=== PATIENT | female | born 1955 | race Caucasian/White ===

== ENCOUNTER 2021-12-07 16:26 | Outpatient (CLI) | payer MEDICARE, SELFPAY ==
[2021-12-07 22:48] LABS: Clue Cells No Clue Cells Seen (None Seen); Trichomonas No Trichomonas Seen (None Seen); Yeast No Yeast Seen (None Seen)
== END 2021-12-07 16:27 | disposition home or self-care (01) ==
LOC: KYNREF 16:26
PROVIDERS: Visit Provider Nurse Practitioner Family
DX: L29.2 Pruritus vulvae (principal)
CPT/HCPCS: 87210

== ENCOUNTER 2023-11-28 12:00 | Outpatient (CLI) | payer MEDICARE, OTHER, SELFPAY ==
--- OUTSIDE RECORDS SUMMARY | 2023-11-28 12:04 | XMS_ITS | Encounter Summary ---
Author Organization [place] Address [address] [place] [address]. [place] [address] Care Team Providers Care Bonus Clerk Name Role Phone Tiny Christiansen MD Unavailable [phone] Gem Lugo DO Primary Care Provider [phone] Encounter Details Date Type Department Care Team (Late st Contact Info) Description 04/21/2009 9:25 AM [facility] in [facility] [address] [place] [phone] Desmond Humphreys MD [address] [place] [address] Social History Tobacco Use Types Packs/Day Years Used Date Smoking Tobacco: Never Alcohol Use Standard Drinks/Week Comments No 0 (1 standard drink = 0.6 oz pur e alcohol) Sex and Gender Information Value Date Recorded Sex Assigned at Not on file Gender Identity Not on file Sexual Orientation Not on file documented as of this encounter Plan of Treatment Not on file documented as of this encounter Visit Diagnoses Not on filedocumented in this encounter Care Teams Bonus Clerk Relationship Specialty Start Date End Date Tiny Christiansen [place] [address] PCP - Obstetrics/Gynecology 03/05/00 1 02/14/14 [place] [address] PCP - General Family Practice 03/30/09 01/18/13 documented as of this encounter
--- OUTSIDE RECORDS SUMMARY | 2023-11-28 12:04 | XMS_ITS | Encounter Summary ---
Author Organization [place] Address [facility] [place] [address] Care Team Providers Care Lean Process Deployment Consultant Name Role Phone Tiny Christiansen MD Unavailable [phone] Gem Lugo DO Primary Care Provider [phone] Delroy Garay MD Unavailable [phone] Encounter Details Date Type Department Care Team (Late st Contact Info) Description 05/18/2009 8:21 AM [facility] in [facility] [address] [place] [phone] Gem Lugo DO [facility] [address] [address] Social History Tobacco Use Types Packs/Day Years [...] on filedocumented in this encounter Care Teams Lean Process Deployment Consultant Relationship Specialty Start Date End Date Tiny Christiansen [place] [address] PCP - Obstetrics/Gynecology 03/05/00 1 02/14/14 [place] [address] PCP - General Family Practice 03/30/09 01/18/13 Delroy [place] [address] PCP - ENT Otolaryngology 05/06/09 01/20/18 documented as of this encounter
--- OUTSIDE RECORDS SUMMARY | 2023-11-28 12:04 | XMS_ITS | Encounter Summary ---
Author Organization [place] Address [address] [place] [address]. [place] [address] Care Team Providers Care Felled Seam Operator Name Role Phone Tiny Christiansen MD Unavailable [phone] Gem Lugo DO Primary Care Provider [phone] Delroy Garay MD Unavailable [phone] Tracee Jacinto NP Primary Care Provider [phone] Reason for Visit * Reason Onset Date Comments MyChart Communication 05/09/2009 Encounter Details Date Type Department Care Team (Late st Contact Info) Description 05/09/2009 MyC Medical Advice [facility] in [facility] [address] [place] [address] Gem Lugo DO [facility] [address] [facility] [address] [place], [place] [id number] MyChart Communication Social History Tobacco Use Types Packs/Day Years [...] on filedocumented in this encounter Care Teams Felled Seam Operator Relationship Specialty Start Date End Date Tiny Christiansen [place] [address] PCP - Obstetrics/Gynecology 03/05/00 1 02/14/14 [place] [address] PCP - General Family Practice 03/30/09 01/18/13 Delroy Garay [place] [address] PCP - ENT Otolaryngology 05/06/09 01/20/18 Tracee Jacinto [place] [address] PCP - General 04/02/16 documented as of this encounter
--- OUTSIDE RECORDS SUMMARY | 2023-11-28 12:04 | XMS_ITS | Encounter Summary ---
Author Organization [place] Address [address] [place] [address]. [place] [address] Care Team Providers Care Flowers Salesperson Name Role Phone Tiny Christiansen MD Unavailable [phone] Gem Lugo DO Primary Care Provider [phone] Delroy Garay MD Unavailable [phone] Tracee Jacinto NP Primary Care Provider [phone] Encounter Details Date Type Department Care Team (Late st Contact Info) Description 05/04/2009 MyC Medical Advice [facility] in [facility] [address] [place] [phone] [facility] [address] [facility] [address] [place] [address] Social History Tobacco Use Types Packs/Day Years [...] on filedocumented in this encounter Care Teams Flowers Salesperson Relationship Specialty Start Date End Date Tiny Christiansen MD [place] [address] PCP - Obstetrics/Gynecology 03/05/00 1 02/14/14 [place] [address] PCP - General Family Practice 03/30/09 01/18/13 Delroy Garay MD [place] [address] PCP - ENT Otolaryngology 05/06/09 01/20/18 Tracee Jacinto [place] [address] PCP - General 04/02/16 documented as of this encounter
--- OUTSIDE RECORDS SUMMARY | 2023-11-28 12:04 | XMS_ITS | Encounter Summary ---
Author Organization [place] Address [facility] [place] [address] Care Team Providers Care Carrier Operator Name Role Phone Tiny Christiansen MD Unavailable [phone] Gem Lugo DO Primary Care Provider [phone] Encounter Details Date Type Department Care Team (Late st Contact Info) Description 05/03/2009 2:43 PM CDT [facility] in [facility] [address] [place] [phone] Gem Lugo DO [facility] [address] [facility] 300 [place] [address] Social History Tobacco Use Types Packs/Day Years [...] on filedocumented in this encounter Care Teams Carrier Operator Relationship Specialty Start Date End Date Tiny Christiansen MD [place] [address] PCP - Obstetrics/Gynecology 03/05/00 1 02/14/14 [place] [address] PCP - General Family Practice 03/30/09 01/18/13 documented as of this encounter
--- OUTSIDE RECORDS SUMMARY | 2023-11-28 12:04 | XMS_ITS | Encounter Summary ---
Author Organization [place] Address [facility] [place] [address] Care Team Providers Care Commercial Airline Pilot Name Role Phone Tiny Christiansen MD Unavailable [phone] Gem Lugo DO Primary Care Provider [phone] Delroy Garay MD Unavailable [phone] Tracee Jacinto NP Primary Care Provider [phone] Reason for Referral * - Closed Specialty Diagnoses / Procedures Referred By Contac t Referred To Contact Diagnoses Multinodular goiter Gem Lugo DO [facility] [address] [address] Referral ID Status Reason Start Date Expiration Date Visits Re quested Visits Authorized [id number] Closed 05/27/2009 02/10/2011 1 1 Comments Multinodular goiter and dysphagia. Encounter Details Date Type Department Care Team (Late st Contact Info) Description 05/20/2009 MyC Medical Advice [facility] in [facility] [address] [place] [phone] Gem Lugo DO [facility] [address] [phone] Multinodular Goiter (Primary Dx) Social History Tobacco Use Types Packs/Day Years [...] documented as of this encounter Visit Diagnoses Diagnosis Multinodular goiter- Primary Nontoxic multinodular goiter documented in this encounter Care Teams Commercial Airline Pilot Relationship Specialty Start Date End Date Tiny Christiansen [place] [address] PCP - Obstetrics/Gynecology 03/05/00 1 02/14/14 [place] [address] PCP - General Family Practice 03/30/09 01/18/13 Delroy Garay [place] [address] PCP - ENT Otolaryngology 05/06/09 01/20/18 Tracee Jacinto [place] [address] PCP - General 04/02/16 documented as of this encounter
--- OUTSIDE RECORDS SUMMARY | 2023-11-28 12:04 | XMS_ITS | Encounter Summary ---
Author Organization [place] Address [address] [place] [address]. [place] [address] Care Team Providers Care Pegger Name Role Phone Tiny Christiansen MD Unavailable [phone] Gem Lugo DO Primary Care Provider [phone] Delroy Garay MD Unavailable [phone] Tracee Jacinto NP Primary Care Provider [phone] Encounter Details Date Type Department Care Team (Late st Contact Info) Description 05/10/[address] [facility] in [facility] [address] [place] [phone] Gem Lugo DO [facility] [address] [facility] 300 [place] [address] Social History Tobacco Use Types Packs/Day Years [...] on filedocumented in this encounter Care Teams Pegger Relationship Specialty Start Date End Date Tiny Christiansen MD [place] [address] PCP - Obstetrics/Gynecology 03/05/00 1 02/14/14 [place] [address] PCP - General Family Practice 03/30/09 01/18/13 Delroy Garay MD [place] [address] PCP - ENT Otolaryngology 05/06/09 01/20/18 Tracee Jacinto [place] [address] PCP - General 04/02/16 documented as of this encounter
--- OUTSIDE RECORDS SUMMARY | 2023-11-28 12:04 | XMS_ITS | Encounter Summary ---
Author Organization [facility] Address [address] [place] [address] Care Team Providers Care Medicare Nurse Name Role Phone Jeri Debi Bunny Primary Care Provider [phone] Reason for Visit * Reason Onset Date Comments Xray symptoms 02/08/2021 Encounter Details Date Type Department Care Team (Late st Contact Info) Description 02/08/2021 Telephone [place] [address] [place] [address] Alexy Rod MD [address] [facility] 20 [place] [address] Xray symptoms Social History Tobacco Use Types Packs/Day Years Used Date Smoking Tobacco: Never Smokeless Tobacco: Never Alcohol Use Standard Drinks/Week Comments Not Currently 0 (1 standard drink = 0.6 oz pur e alcohol) Overall Financial Resource Strain (CARDIA) Answe r Date Recorded Difficulty of Paying Living Expenses Not hard at all 09/17/2018 PHQ-2 Answer Date Recorded PHQ-9 Total Score 0 01/30/2021 [facility] - Occupational Stress Questionnaire Answer Date Recorded Feeling of Stress Not at all 09/17/2018 Exercise Vital Sign Answer Date Recorde d Days of Exercise per Week 0 days 2018 Minutes of Exercise per Session 0 min 09/17/2018 Hunger Vital Sign Answer Date Recorded Worried About Running Out of Food in the Last Ye ar Never true 09/17/2018 Ran Out of Food in the Last Year Never true 09/17/2018 PRAPARE - Transportation Answer Date Re corded Lack of Transportation (Medical) No 09/17/2018 Lack of Transportation (Non-Medical) No 09/17/2018 Education Answer Date Recorded What is the highest level of school you have completed or the highest degree you have received? High school graduate 09/13/2018 Sex and Gender Information Value Date Recorded Sex Assigned at Not on file Gender Identity Not on file Sexual Orientation Not on file documented as of this encounter Plan of Treatment Not on file documented as of this encounter Visit Diagnoses Not on filedocumented in this encounter Additional Health Concerns Infection Onset Date Last Indicated Resolved Time COVID-19 Confirmed 01/30/2021 01/30/2021 2 8:17 PM CDT documented as of this encounter Care Teams Medicare Nurse Relationship Specialty Start Date End Date Debi Wilcox [address] [place] [address] PCP - General Internal Medicine 11/20/22 documented as of this encounter
--- OUTSIDE RECORDS SUMMARY | 2023-11-28 12:04 | XMS_ITS | Encounter Summary ---
Author Organization [place] Address [address] [place] [address]. [place] [address] Care Team Providers Care Program Host Name Role Phone luis mTee Primary Care Provider Unavaila ble Tiny Christiansen MD Unavailable [phone] Gem Lugo DO Primary Care Provider [phone] Delroy Garay MD Unavailable [phone] Tracee Jacinto NP Primary Care Provider [phone] Encounter Details Date Type Department Care Team (Late st Contact Info) Description 03/20/2009 MyC Medical Advice [facility] in [place] [employer]IXER OPERATOR [employer] [address] [place] [address] Shayna Cruz MD [facility] [address] [place], [place] [phone] Social History Tobacco Use Types Packs/Day Years [...] on filedocumented in this encounter Care Teams Program Host Relationship Specialty Start Date End Date Tee Sanders PCP - General 03/05/07 03/29/09 Tiny Christiansen MD [place] [address] PCP - Obstetrics/Gynecology 03/05/00 1 02/14/14 Gem Lug[place] [address] PCP - General Family Practice 03/30/09 01/18/13 Delroy Garay MD [place] [address] PCP - ENT Otolaryngology 05/06/09 01/20/18 Tracee Jacinto NP [place] [address] PCP - General 04/02/16 documented as of this encounter
--- OUTSIDE RECORDS SUMMARY | 2023-11-28 12:04 | XMS_ITS | Referral Summary ---
Author Organization [place] Address [address] [place] [address]. [place] [address] Care Team Providers Care Pile Operator Name Role Phone Tracee Jacinto NP Primary Care Provider Allergies Active Allergy Reactions Criticality Noted Date Comments Levofloxacin Hemihydrate 10/03/2001 Levaquin Penicillins 10/03/2001 Sulfa Antibiotics 10/03/2001 Medications Medication Sig Dispensed Refills Start Date End Date Status PREDNISONE 20 MG OR TABS 2 daily x 5 days, 1 daily x 5 days, 1/2 daily x 5 days 18 Tab 0 05/02/2009 Active WILMA 60 MG OR CAPS 1 tablet twice daily 60 Units 0 09/20/2009 Active NEXIUM 40 MG PO CPDR 1 CAPSULE DAILY 30 Cap 0 09/20/2009 Active Fluticasone Propionate (FLONASE INHA 50 MCG/DOSE NA) 2 sprays by Each Nare route daily. 1 Bottle 0 12/09/2009 Active Immunizations Name Administration Dates Next Due TD,PF 7+ (Tenivac) 03/30/2001 Social History Tobacco Use Types Packs/Day Years Used Date Smoking Tobacco: Never Alcohol Use Standard Drinks/Week Comments No 0 (1 standard drink = 0.6 oz pur e alcohol) Adolescent Education Answer Date Record ed Getting School Help Needed Not on file 11/17 Sex and Gender Information Value Date Recorded Sex Assigned at Not on file Gender Identity Not on file Sexual Orientation Not on file Last Filed Vital Signs Vital Sign Reading Time Taken Comments Blood Pressure 138/84 05/09/2009 3:29 PM CDT Pulse 68 05/09/2009 3:29 PM CDT Temperature 36.4 ??C (97.6 ??F) 05/09/2009 3:29 PM CD T Respiratory Rate - - Oxygen Saturation - - Inhaled Oxygen Concentration - - Weight 113.8 kg (250 lb 14.4 oz) 05/09/2009 3:29 PM CDT Height 165.1 cm (5' 5) 03/16/2009 3:39 PM MANAGER GAME Body Mass Index 41.75 03/16/2009 3:39 PM MANAGER GAME Plan of Treatment Not on file Care Teams Pile Operator Relationship Specialty Start Date End Date Tracee Jacinto NP PCP - General 04/02/16
--- OUTSIDE RECORDS SUMMARY | 2023-11-28 12:04 | XMS_ITS | Encounter Summary ---
Author Organization [place] Address [address] [place] [address]. [place] [address] Care Team Providers Care Microchip Specialist Name Role Phone luis mTee Primary Care Provider Tiny Ford MD Unavailable [phone] Encounter Details Date Type Department Care Team (Late st Contact Info) Description 03/18/2009 8:18 AM [facility] in [facility] [address] [place] [address] Shayna Cruz MD [facility] [address] [place] [address] Social History Tobacco Use Types Packs/Day Years [...] on filedocumented in this encounter Care Teams Microchip Specialist Relationship Specialty Start Date End Date Tee Sanders PCP - General 03/05/07 03/29/09 Tiny Christiansen [place] [address] PCP - Obstetrics/Gynecology 03/05/00 1 02/14/14 documented as of this encounter
--- OUTSIDE RECORDS SUMMARY | 2023-11-28 12:04 | XMS_ITS | Clinical Summary ---
Author Organization [place] Address [address] [place] [address]. [place] [address] Care Team Providers Care Security Officer Name Role Phone Tracee Jacinto NP Primary [...] Dates Next Due TD,PF 7+ (Tenivac) 03/30/2001 Family History Medical History Relation Comments Lipids Father Cancer Maternal Grandmother ovarian can cer Hypertension Mother Cancer Paternal Grandfather stomach Cancer Paternal Grandmother ovarian[place] cancer Diabetes Other family hx Eye Disorder Other Anesthesia Reaction No family hx of Blood Disease No family hx of Relation Status Comments Father Maternal Grandmother Mother Paternal Grandfather Paternal Grandmother Other Social History Tobacco Use Types Packs/Day Years [...] 165.1 cm (5' 5) 03/16/2009 3:39 PM EDUCATION FACULTY MEMBER Body Mass Index 41.75 03/16/2009 3:39 PM EDUCATION FACULTY MEMBER Plan of Treatment Not on file Care Teams Security Officer Relationship Specialty Start Date End Date Tracee Jacinto NP PCP - General 04/02/16
--- OUTSIDE RECORDS SUMMARY | 2023-11-28 12:04 | XMS_ITS | Clinical Summary ---
Author Organization [facility] er Address [address] [place] [address] Care Team Providers Care Social Media Developer Name Role Phone Jeri Debi Hollis Primary Care Provider [phone] Allergies Active Allergy Reactions Criticality Noted Date Comments Adhesive Tape Rash Low 12/04/2013 Cefaclor Hives,Rash High 08/13/2018 Chocolate Anaphylaxis High 08/13/2018 Ciprofloxacin Hives,Rash High 08/13/2018 [place] Anaphylaxis High 08/13/2018 Egg-Derived Products Nausea And Vomiting,Other (see comments),Headache High 08/13/2018 Esophageal burning Cephalexin Hives Medium 05/11/2019 Levofloxacin Anaphylaxis,Hives,Sh ortness of breath High 10/03/2001 Levaquin Other reaction(s): Urticaria/Hives Other Hives,Rash High 09/13/2018 ALLERGIES TO MULTIPLE ANTIBIOTICS Penicillins Hives Medium 10/03/2001 Other reaction(s): Urticaria/Hives Sulfa Antibiotics Hives,Rash High 10/03/2001 Sulfamethoxazole-Trime thoprim High 06/05/2022 Other Reaction(s): GI intolerance Medications Medication Sig Dispensed Refills Start Date End Date Status latanoprost (XALATAN) 0.005 % ophthalmic solution Administer 1 drop into both eyes every other day Glaucoma 05/24/2018 Active aspirin 325 MG tablet Take 1 tablet (325 mg total) by mouth 1 (one) time each day Fibral myalgia Active esomeprazole (NEXIUM) [address] capsuleIndications:G astroesophageal reflux disease without esophagitis Take one a day for GERD. Do not open capsule. 90 capsule 3 10/17/2018 Active Cobalamin Combinations (B-12) 100-[address] under the tongue Active Ergocalciferol (VITAMIN D2 PO) Place under the tongue Active fluticasone (FLONASE) 50 MCG/ACT nasal sprayIndications:All ergic rhinitis due to other allergic trigger, unspecified seasonality INHALE ONE PUFF INTO EACH NOSTRIL EVERY DAY 16 g 11 01/04/2020 Active metoprolol succinate XL (TOPROL-XL) 25 MG 24 hr tablet Take 0.5 tablets (12.5 mg total) by mouth daily 09/26/2021 Active hydrOXYzine (ATARAX) 25 MG tablet Take 1 tablet (25 mg total) by mouth daily Active estradiol (ESTRACE) 0.1 MG/GM vaginal cream Insert 2 g into the vagina 3 (three) times a week 08/02/2021 Active Cholecalciferol 10 MCG/ML liquid 400 Units Active atorvastatin (LIPITOR) 40 MG tablet Take 1 tablet (40 mg total) by mouth daily 08/17/2021 Active clobetasol (TEMOVATE) 0.05 % cream 12/07/2021 Active azelastine (ASTELIN) 0.1 % nasal spray Administer 1 spray into affected nostril(s) 2 times daily 04/04/2023 Active azithromycin (ZITHROMAX) 250 MG tablet 05/20/2023 Active ezetimibe (ZETIA) 10 MG tablet Take 1 tablet (10 mg total) by mouth 5 (five) times a week at 0900. 01/15/2023 Active Active Problems Problem Noted Date Diagnosed Date Cardiomyopathy 12/15/2021 Frequent PVCs 12/15/2021 Left atrial enlargement 12/15/2021 LVH (left ventricular hypertrophy) 12/15/2021 Primary osteoarthritis of both knees 12/15/2021 Other specified glaucoma 12/15/2021 Atrophic vaginitis 07/21/2021 Overview: Estrogen cream Atarax - off label use - per patient as told by [facility]. Encounter for screening for malignant neoplasm o f colon 07/21/2021 Overview: Added automatically from request for surgery [id number] condition 07/21/2021 Overview: Severe fatigue, works 4 hrs/dy and hits wall. Solitary pulmonary nodule 07/21/2021 Overview: Likely due to Covid infection/pneumonia Jan CT with decreased size of nodules. Plan tor repeat in July 2022 History of pneumonia 01/30/2021 Overview: 3 in lifetime, 3rd and worse one due to Covid in Jan 2021, hospitalized 4 days Drug allergy 08/10/2019 Vaginal polyp 04/23/2019 Fever 10/14/2018 Benign endometrial hyperplasia 10/09/2018 Monoclonal gammopathy 02/18/2018 Chronic sinusitis 03/25/2017 Irritable bowel syndrome without diarrhea 2014 Hyperlipidemia 11/20/2013 Vitamin D deficiency 11/20/2013 Allergic rhinitis 07/13/2013 Overview: date of onset unknown Fibromyalgia 06/24/2013 Overview: unknown date of dx History of colonic polyps 04/11/2012 Nontoxic multinodular goiter 04/11/2012 Arthropathy 06/27/2011 Gastroesophageal reflux disease with esophagitis 06/27/2011 Immunizations Name Administration Dates Next Due TD Preservative Free 08/08/2017,03/30/2001 Td 03/30/2001 Td, Unspecified 03/30/2001 Tdap 11/16/2013 Family History Medical History Relation Comments Hyperlipidemia Brother Hyperlipidemia Father Asthma Maternal Grandmother Ovarian cancer Maternal Grandmother Stomach cancer Paternal Grandfather Asthma Sister 1 Familial Adenomatous Polyposis Sister 2 Hyperlipidemia Sister 2 Breast cancer Neg Hx Relation Status Comments Brother Alive Father Maternal Grandmother Paternal Grandfather Sister 1 Alive Sister 2 Alive Social History Tobacco Use Types Packs/Day Years Used Date Smoking Tobacco: Never Smokeless Tobacco: Never Tobacco Cessation:Counseling Given: No Alcohol Use Standard Drinks/Week Comments Not Currently 0 (1 standard drink = 0.6 oz pur e alcohol) Overall Financial Resource Strain (CARDIA) Answe r Date Recorded Difficulty of Paying Living Expenses Not hard at all 09/17/2018 PHQ-2 Answer Date Recorded PHQ-9 Total Score 0 12/15/2021 [facility] [place] [place] [facility] - Occupational Stress [...] Sign Reading Time Taken Comments Blood Pressure 136/80 07/12/2023 10:04 AM CDT Pulse 62 07/11/2023 10:06 AM CDT Temperature 36.6 ??C (97.9 ??F) 12/15/2021 8:08 AM CD T Respiratory Rate 16 12/15/2021 8:08 AM CDT Oxygen Saturation 96% 12/15/2021 8:08 AM CDT Inhaled Oxygen Concentration - - Weight 101 kg (222 lb) 12/15/2021 8:08 AM CDT Height 162.6 cm (5' 4) 12/15/2021 8:08 AM CDT Body Mass Index 38.11 12/15/2021 8:08 AM CDT Plan of Treatment Health Maintenance Due Date Last Done Comments CT Colonography 1956 FIT-DNA 1956 Sigmoidoscopy 1955 iFOBT 1956 Fall Risk Performed 1974 Zoster Vaccines (1 of 2) 2006 Pneumococcal Vaccine: 65+ Years (1 of 1 - PCV) 2021 Mammogram 08/28/2023 08/27/2022, 08/11, 07/05/2021, Additional history exists COVID-19 Vaccine (1 - 4- season) 2023 Influenza Vaccine (#1) 2023 DTaP,Tdap,and Td Vaccines (3 - Td or Tdap) 08/09/2027 08/08/2017, 08/08/2017, 11/16/2013, Additional history exists Bone Density Scan 09/06/2027 09/05/2022, , 12/11/2016 Colonoscopy 01/30/2032 01/29/2022, 04/12, 02/12/2012 Colorectal Cancer Screening 01/30/2032 Pap Smear Discontinued 09/02/2018, 08/12, 02/10/2015 HPV Vaccines Aged Out No longer eligi ble based on patient's age to complete this topic Procedures Procedure Name Priority Date/Time Associated Diagnosis Comments PAP TEST Routine 02/10/2015 9:34 AM HEAD CHARGER from Last 3 Months or Most Recently Relevant to Health Maintenance Results * Pap Smear (02/10/2015 9:34 AM HEAD CHARGER) Sure[facility] Pap Test SEE BELOW [facility] Comment: ? [facility] ? [address] ?[place] [address] ? Patient: ?GABRIELA AMBROSIO ? Procedure: ? 02/10/2015 09:34 /Age/Sex: ??1955, 59 Y, F ? Received: ?02/10/2015 14:29 ?Accession #: ?? [id number] Billing: ?[id number] ?Patient Location: [facility] [place] [place] ?OFFICE Ordered by: ?? POLLO JACINTO, PRESSED OR BLOWN GLASS WORKER, COUPON CLERK ? Attending: ? POLLO JACINTO, ? PRESSED OR BLOWN GLASS WORKER, COUPON CLERK ? [facility] CYTOLOGY FINAL REPORT SPECIMEN: (A) SURE PATH PAP SCREEN WITH HPV REFLEX SPECIMEN DESCRIPTION: Endocervical Received cloudy specimen in SurePath vial. CLINICAL INFORMATION: LMP: ??/??/2011 ?? Menopause: Y ?? Prev.normal: 2011 ??SPECIMEN ADEQUACY: Satisfactory for Evaluation. ??No endocervical cells/transformation zone component present. GENERAL CATEGORIZATION: Negative for Intraepithelial Lesion or Malignancy INTERPRETATION/RESULTS: Comment: ??An inadequate endocervical/transformational zone component is not necessarily an indication for immediately repeating the pap. ??Correlation with the history and clinical exam are required. PAP Test Disclaimer Cervical cytology is a screening test primarily for squamous cancer and its precursors and has associated false-negative and false-positive results. Regular sampling and follow-up of unexplained clinical signs and symptoms are recommended to minimize the impact of false negative and false positive results. Screened By: Signed By: VERA GARCIA (ASCP) <Sign Out Dr. Mcclelland> Reported: ??02/17/2015 ? Page 1 of 1 Sure Path PAP screen with HPV reflex 02/10/2015 9:34 AM HEAD CHARGER 02/10/2015 2:29 PM HEAD CHARGER Pollo Jacinto PRESSED OR BLOWN GLASS WORKER, COUPON CLERK LAB CYTOLOG Y ORDERABLES [facility] [address] [place] [address] from Last 3 Months or Most Recently Relevant to Health Maintenance Care Teams Social Media Developer Relationship Specialty Start Date End Date Debi Wilcox [address] [place] [phone] PCP - General Internal Medicine 11/20/22
--- OUTSIDE RECORDS SUMMARY | 2023-11-28 12:05 | XMS_ITS | Encounter Summary ---
Author Organization [facility] Address [address] [place] [address]. [place] [address] Care Team Providers Care Direct Marketing Representative Name Role Phone luis mTee Primary Care Provider Unavaila ble Tiny Christiansen MD Unavailable [phone] Gem Lugo DO Primary Care Provider [phone] Delroy Garay MD Unavailable [phone] Tracee Jacinto NP Primary Care Provider [phone] Encounter Details Date Type Department Care Team (Late st Contact Info) Description 03/18/2009 MyC Medical Advice [facility] in [place] MEDICATION RECONCILIATION TECHNICIAN [address] [place] [address] Shayna Cruz MD [facility] [address] [place], [place] [id number] Social History Tobacco Use Types Packs/Day Years [...] on filedocumented in this encounter Care Teams Direct Marketing Representative Relationship Specialty Start Date End Date Tee Sanders PCP - General 03/05/07 03/29/09 Tiny [place] [address] PCP - Obstetrics/Gynecology 03/05/00 1 02/14/14 [place] [address] PCP - General Family Practice 03/30/09 01/18/13 [place] [address] PCP - ENT Otolaryngology 05/06/09 01/20/18 [place] [address] PCP - General 04/02/16 documented as of this encounter
--- OUTSIDE RECORDS SUMMARY | 2023-11-28 12:05 | XMS_ITS | Encounter Summary ---
Author Organization [facility] Address [address] [place] [address] Care Team Providers Care Ambulette Driver Name Role Phone Debi Wilcox M.D. Primary Care Provider [phone] Reason for Referral * Cardiovascular-Diagnostic (Routine) - Closed Specialty Diagnoses / Procedures Referred By Contac t Referred To Contact Diagnoses Beat Premature Ventricular Fatigue Pain Chest Cardiomyopathy Dilated (HCC) Procedures Echo Transthoracic (TTE) Eduardo Barclay M.D. [address] [place] [phone] Phone: tel: fax: [facility] Region Referral ID Status Reason Start Date Expiration Date Visits Re quested Visits Authorized [id number] Closed 07/05/2023 07/04/2024 1 1 Reason for Visit * Cardiovascular-Diagnostic (Routine) - Closed Specialty Diagnoses / Procedures Referred By Contac t Referred To Contact Diagnoses Beat Premature Ventricular Fatigue Pain Chest Cardiomyopathy Dilated (HCC) Procedures Echo Transthoracic (TTE) Eduardo Barclay M.D. [address] [place] [phone] Phone: tel: fax: [facility] Region Referral ID Status Reason Start Date Expiration Date Visits Re quested Visits Authorized [id number] Closed 07/05/2023 07/04/2024 1 1 Encounter Details Date Type Department Care Team (Latest Contact Info) Description 11/05/2023 7:13 AM CDT - 11/05/2023 11:59 PM CDT Hospital Encounter Department of Cardiovascular Diseases in [place], [place] [address] [place] [phone] Eduardo Barclay M.D. [address] [place] [address] Beat Premature Ventricular; Fatigue; Pain Chest; Cardiomyopathy Dilated (HCC) Discharge Disposition: Home or Self Care Social History Tobacco Use Types Packs/Day Years Used Date Smoking Tobacco: Never Passive Smoke Exposure: Never Smokeless Tobacco: Never Alcohol Use Standard Drinks/Week Comments No 0 (1 standard drink = 0.6 oz pur e alcohol) [facility] Utilities Answer Date Recorded In the past 12 months has [employer] electric, gas, oil, or water company threatened to shut off services in your home? No 04/04/2023 Humiliation, Afraid, Rape, and Kick questionnair e Answer Date Recorded Fear of Current or Ex-Partner No Emotionally Abused No 11/06/2018 Physically Abused No 11/06/2018 Sexually Abused No 11/06/2018 Social Connection and Isolat ion Panel [NHANES] Answer Date Recorded Frequency of Communication w ith Friends and Family More than three times a week 11/06/2018 Frequency of Social Gatherin gs with Friends and Family Twice a week 11/06/2018 Attends Anabaptism Services More than 4 times per year 11/06/2018 Active Member of Clubs or Organizations Yes 11/06/2018 Attends Club or Organization Meetings More than 4 times per year 11/06/2018 Marital Status 11/06/2018 AUDIT-C Answer Date Recorded Frequency of Alcohol Consumption Never 11/06/2018 Average Number of Drinks Not on file 019 Frequency of Binge Drinking Never 10/13 Overall Financial Resource Strain (CARDIA) Answe r Date Recorded Difficulty of Paying Living Expenses Somewhat long rd 11/06/2018 PHQ-2 Answer Date Recorded PHQ-2 Score 0 03/29/2023 [facility] [place] [facility] - Occupational Stress Questionnaire Answer Date Recorded Feeling of Stress Only a little 11/06/2018 Exercise Vital Sign Answer Date Recorde d On average, how many days pe r week do you engage in moderate to strenuous exercise (like a brisk walk)? 2 days Minutes of Exercise per Session Not on file 04/04/2023 Hunger Vital Sign Answer Date Recorded Within the past 12 months, y ou worried that your food would run out before you got the money to buy more. Never true 04/04/19 24 Within the past 12 months, t he food you bought just didn't last and you didn't have money to get more. Never true 04/04/2023 PRAPARE - Transportation Answer Date Re corded In the past 12 months, has l ack of transportation kept you from medical appointments or from getting medications? No 03/15 In the past 12 months, has l ack of transportation kept you from meetings, work, or from getting things needed for daily living? No 04/04/2023 Nutrition Answer Date Recorded On average, how many serving s of fruits and vegetables do you eat per day (serving size is equal to 1 cup or approximately the size of a tennis ball)? 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 I have a [facility] place to live 04/04/2023 Education Answer Date Recorded What is the highest level of school you have completed or the highest degree you have received? 12th grade 11/06/2018 Comments No Sex and Gender Information Value Date Recorded Sex Assigned at Female 02/14/2018 7:06 AM HEAVY CLEANER Legal Sex Female 6:32 AM HEAVY CLEANER Gender Identity Female 02/14/2018 7:06 AM HEAVY CLEANER Sexual Orientation Straight 02/14/2018 7: 06 AM HEAVY CLEANER documented as of this encounter Medications at Time of Discharge acetaminophen (TYLENOL EXTRA STRENGTH) 500 mg tablet Take 2 tablets (1,000 mg total) by mouth every 6 (six) hours as needed for pain. 10/09/2018 aspirin 325 mg tablet Take 325 mg by mouth. atorvastatin (LIPITOR) 40 mg tablet Take 1 tablet (40 mg total) by mouth 2 (two) times a week. Twice a week 8 tablet 11 01/14/2023 azelastine (ASTELIN) 137 mcg/spray (0.1 %) nasal spray Administer 1 spray into each nostril 2 (two) times a day. Use in each nostril as directed 30 mL 12 04/04/2023 cholecalciferol, vitamin D3, 25 mcg (1,000 Unit) tablet Take 1 tablet (1,000 Units total) by mouth daily. (start after done with the 50,000 unit weekly capsules) 90 tablet 11 09/12/2023 clobetasoL (TEMOVATE) 0.05 % cream as needed. 12/07/2021 cyanocobalamin, vitamin B-12, 5,000 mcg/mL drops Place under the tongue. 1 drop/a couple times a week esomeprazole (NexIUM) [address] capsule Take 1 capsule by mouth 2 (two) times a day before breakfast and dinner. 04/30/2014 ezetimibe (ZETIA) 10 mg tablet Take 1 tablet (10 mg total) by mouth 5 (five) times a week. When not taking the atorvastatin 20 tablet 11 01/15/2023 hydrOXYzine (ATARAX) 25 mg tablet Take 25 mg by mouth at bedtime. metoprolol succinate (TOPROL-XL) 25 mg 24 hr tablet Take 0.5 tablets (12.5 mg total) by mouth daily. Do not crush or chew. 45 tablet 3 07/05/2023 documented as of this encounter Plan of Treatment Upcoming Encounters Date Type Department Care Team (Late st Contact Info) Description 12/13/2023 7:20 AM CDT Appointment Department of Laboratory Medicine in [address] [phone] Debi Wilcox M.D. [address] [place] [phone] 03/09/2024 10:50 AM HEAVY CLEANER Appointment Department of Laboratory Medicine in [address] [phone] Debi Wilcox M.D. [address] [place] [address] 03/09/2024 11:00 AM HEAVY CLEANER Appointment Department of Radiology in [place] [address] [place] [phone] Debi Wilcox M.D. [address] [place] [phone] 03/09/2024 1:00 PM HEAVY CLEANER Office Visit Department of Internal Medicine in [place] [address] [place] [phone] Debi Wilcox M.D. [address] [place] [phone] documented as of this encounter Procedures Procedure Name Priority Date/Time Associated Diagnosis Comments (TTE) 2D ECHO DOPPLER COLOR Routine 11/05/2023 8:09 AM CDT Beat Premature Ventricular Fatigue Pain Chest Cardiomyopathy Dilated (HCC) documented in this encounter Results * (TTE) 2D ECHO DOPPLER COLOR (11/05/2023 8:09 AM CDT) Ejection Fraction 57 MC CV EIMS Sinus of Valsalva 36 MC CV EIMS Mid-Ascending Aorta 39 MC CV EIMS LV Mass Index 94 MC CV EIMS LV End-Diastolic Diameter 51 MC CV EIMS LV End-Systolic Diameter 35 MC CV EIMS LV End-Diastolic Volume 150 MC CV EIMS LV End-Systolic Volume 65 MC CV EIMS MV E Velocity 0.7 MC CV EIMS MV A Velocity 0.9 MC CV EIMS MV E/A 0.78 MC CV EIMS MV e' Velocity Medial 0.05 MC CV EIMS MV e' Velocity Lateral 0.09 MC CV EIMS MV E/e' Medial 14 MC CV EIMS MV E/e' Lateral 7.8 MC CV EIMS Left ventricular stroke volume index 50 MC CV EIMS Cardiac Output 5.38 MC CV EIMS Cardiac Index 2.53 MC CV EIMS LV Interventricular Septal Wall Thickness 10 MC CV EIMS LV Posterior Wall Thickness 11 MC CV EIMS LV Relative Wall Thickness 43 MC CV EIMS Tricuspid Annular S? 0.16 MC CV EIMS TR Vmax 2.62 MC CV EIMS RA Pressure 5 MC CV EIMS RV Systolic Pressure 32 MC CV EIMS Estimated diastolic pulmonary artery pressure 9 MC CV EIMS AV mean gradient 3 MC CV EIMS Aortic valve area 3.52 MC CV EIMS Aortic Valve Dimensionless Index 0.72 MC CV EIMS LA Volume Index 47 MC CV EIMS Aortic Valve Systolic Peak Velocity 1.3 MC CV EIMS Anatomical Region Laterality Modality Echocardiography 11/05/2023 7:17 AM CDT Impressions 11/05/2023 9:19 AM CDT Transthoracic outreach echo interpretation. LEFT VENTRICLE:Mildly enlarged left ventricular chamber size. Abnormal left ventricular geometry with ??concentric remodeling (increased wall thickness to cavity ratio). Calculated 2-D biplane volumetric left ventricular ejection fraction of 57%. No regional wall motion abnormalities. Indeterminate left ventricular diastolic function. RIGHT VENTRICLE:Normal right ventricular chamber size. Mildly reduced right ventricular systolic function. Estimated right ventricular systolic pressure 32 mmHg (right atrial pressure of 5 mmHg). ATRIA:Moderately enlarged left atrial size. Left atrial volume index 47 ml/m2. Enlarged right atrial size by visual estimate. CARDIAC VALVES:Trileaflet aortic valve. Normal aortic valve. No aortic valve regurgitation. Normal mitral valve. Trivial mitral valve regurgitation. Normal pulmonary valve. Normal pulmonary valve systolic velocities. Trivial pulmonary valve regurgitation. Normal tricuspid valve. Trivial tricuspid valve regurgitation. OTHER ECHO FINDINGS:Inferior vena cava not well visualized. Normal sinus of Valsalva diameter of 36 mm. Normal mid ascending aorta diameter of 39 mm. Abdominal aorta not visualized. Imaging inadequate for detection of atrial level shunt. No intracardiac mass or thrombus, but the left atrial appendage cannot be visualized adequately with transthoracic echo to exclude thrombus in this location. No ??pericardial effusion. For the complete report, see the Order-Level Documents. Narrative 11/05/2023 9:19 AM CDT For the complete report, see the Order-Level Documents. Hemodynamics Heart Rate: 51 BPM Blood Pressure: 148 / 90 mmHg ECG: Sinus rhythm Final Impressions 1. Mildly enlarged left ventricular chamber size, no regional wall motion abnormalities, calculated 2-D biplane volumetric ejection fraction of 57%. 2. Normal right ventricular chamber size, mildly reduced systolic function, estimated right ventricular systolic pressure 32 mmHg (right atrial pressure of 5 mmHg). 3. No hemodynamically significant valvular heart disease. 4. Inferior vena cava not well visualized. 5. No ??pericardial effusion. 6. Compared to the report of 03/15/2022 the following changes have occurred: Improvement in left ventricular size and ejection fraction (previously, LVEF was 40-45% in the setting of frequent PVCs). The PVCs are no longer evident.. ??Side by side comparison of images performed. Procedure Note Rios Vargas M.D., Ph.D. - 11/05/2023 For the complete report, see the Order-Level Documents. Hemodynamics Heart Rate: 51 BPM Blood Pressure: 148 / 90 mmHg ECG: Sinus rhythm Final Impressions 1. Mildly enlarged left ventricular chamber size, no regional wall motionabnormalities, calculated 2-D biplane volumetric ejection fraction of57%. 2. Normal right ventricular chamber size, mildly reduced systolicfunction, estimated right ventricular systolic pressure 32 mmHg (rightatrial pressure of 5 mmHg). 3. No hemodynamically significant valvular heart disease. 4. Inferior vena cava not well visualized. 5. No pericardial effusion. 6. Compared to the report of 03/15/2022 the following changes haveoccurred: Improvement in left ventricular size and ejection fraction(previously, LVEF was 40-45% in the setting of frequent PVCs). The PVCsare no longer evident.. Side by side comparison of images performed. Findings Transthoracic outreach echo interpretation. LEFT VENTRICLE:Mildly enlarged left ventricular chamber size. Abnormalleft ventricular geometry with concentric remodeling (increased wallthickness to cavity ratio). Calculated 2-D biplane volumetric leftventricular ejection fraction of 57%. No regional wall motionabnormalities. Indeterminate left ventricular diastolic function. RIGHT VENTRICLE:Normal right ventricular chamber size. Mildly reducedright ventricular systolic function. Estimated right ventricular systolicpressure 32 mmHg (right atrial pressure of 5 mmHg). ATRIA:Moderately enlarged left atrial size. Left atrial volume index 47ml/m2. Enlarged right atrial size by visual estimate. CARDIAC VALVES:Trileaflet aortic valve. Normal aortic valve. No aorticvalve regurgitation. Normal mitral valve. Trivial mitral valveregurgitation. Normal pulmonary valve. Normal pulmonary valve systolicvelocities. Trivial pulmonary valve regurgitation. Normal tricuspid valve.Trivial tricuspid valve regurgitation. OTHER ECHO FINDINGS:Inferior vena cava not well visualized. Normal sinusof Valsalva diameter of 36 mm. Normal mid ascending aorta diameter of 39mm. Abdominal aorta not visualized. Imaging inadequate for detection ofatrial level shunt. No intracardiac mass or thrombus, but the left atrialappendage cannot be visualized adequately with transthoracic echo toexclude thrombus in this location. No pericardial effusion. For the complete report, see the Order-Level Documents. us Eduardo Barclay M.D. CV ECHO PROCEDURES Final R esult documented in this encounter Visit Diagnoses Diagnosis Beat Premature Ventricular Fatigue Pain Chest Cardiomyopathy Dilated (HCC) documented in this encounter Additional Health Concerns Assessment Noted Time PHQ-9 Depression Total Score: 4 11/13/19 19 7:39 AM CDT documented as of this encounter Care Teams Ambulette Driver Relationship Specialty Start Date End Date Debi Wilcox M.D. [address] [place] [phone] PCP - General Internal Medicine 10/01/18 documented as of this encounter
--- OUTSIDE RECORDS SUMMARY | 2023-11-28 12:05 | XMS_ITS | Clinical Summary ---
Author Organization [facility] Address [address] [place] [id number] Care Team Providers Care Bit Shaver Name Role Phone Debi Wilcox M.D. Primary Care Provider [phone] Source Comments Patient records contain information from all sites at [facility]. For routine questions regarding patient records, call [phone] during business hours, M-F 8:00 AM - 5:00 PM Central Time. Record requests for emergency care only can be directed to [phone] at any time.[facility] Allergies Active Allergy Reactions Criticality Noted Date Comments Adhesive Tape-Silicones Rash 12/04/2013 Amoxicillin Other (see comments) 01/10/2021 Cefaclor Shortness of breath (Reselect Reaction),Rash,Hives (Reselect Reaction) High 04/30/2014 Cephalexin Other (see comments) 01/10/2021 Ciprofloxacin Anaphylaxis,Hives (Reselect Reaction),Shortness of breath (Reselect Reaction),Rash High 04/30/2014 [place] Anaphylaxis High 08/13/2018 Egg Nausea And Vomiting,GI intolerance,Headache, Other (see comments) High 08/13/2018 Esophageal burning Levofloxacin Anaphylaxis,Hives (Reselect Reaction),Shortness of breath (Reselect Reaction) High 10/03/2001 Levaquin Other reaction(s): Urticaria/Hives Penicillin V Potassium Other (see comments) Sulfa (Sulfonamide Antibiotics) Rash Medium 10/03/2001 Other reaction(s): Urticaria/Hives Sulfacetamide Sodium Other (see comments) 01/10 Sulfamethoxazole-Trimet [facility] GI intolerance High 06/05/2022 Medications * This document contains information received from the source organization and may not represent a complete record from that organization. esomeprazole (NexIUM) [address] capsule Take 1 capsule by mouth 2 (two) times a day before breakfast and dinner. 5 Active acetaminophen (TYLENOL EXTRA STRENGTH) 500 mg tablet Take 2 tablets (1,000 mg total) by mouth every 6 (six) hours as needed for pain. 9 Active cyanocobalamin , vitamin B-12, 5,000 mcg/mL drops Place under the tongue. 1 drop/a couple times a week Active hydrOXYzine (ATARAX) 25 mg tablet Take 25 mg by mouth at bedtime. Active clobetasoL (TEMOVATE) 0.05 % cream as needed. 2 Active ezetimibe (ZETIA) 10 mg tablet Take 1 tablet (10 mg total) by mouth 5 (five) times a week. When not taking the atorvastatin 20 tablet 11 3 Active atorvastatin (LIPITOR) 40 mg tablet Take 1 tablet (40 mg total) by mouth 2 (two) times a week. Twice a week 8 tablet 11 3 Active Additional Information Patient taking differently:40 mg oral3 times weekly, Three times a week, Informant: Self, Reported on 07/05/2023 azelastine (ASTELIN) 137 mcg/spray (0.1 %) nasal spray Administer 1 spray into each nostril 2 (two) times a day. Use in each nostril as directed 30 mL 12 4 Active metoprolol succinate (TOPROL-XL) 25 mg 24 hr tablet Take 0.5 tablets (12.5 mg total) by mouth daily. Do not crush or chew. 45 tablet 3 4 07/05/19 25 Active cholecalcifero l, vitamin D3, 25 mcg (1,000 Unit) tablet Take 1 tablet (1,000 Units total) by mouth daily. (start after done with the 50,000 unit weekly capsules) 90 tablet 11 4 Active aspirin 325 mg tablet Take 325 mg by mouth. Active cholecalcifero l (Vitamin D3) 1,250 mcg (50,000 Unit) capsule Take 1 capsule (50,000 Units total) by mouth once a week for 8 doses. 8 capsule 4 11/01/19 24 Active Problems Problem Noted Date Diagnosed Date History Of Falling 09/12/2023 Stenosis Carotid Artery Left 09/12/2023 Overview (09/12/2023): CT Angio Mar 2023 mild stenosis Repeat US in 1-2 yr Dyspnea On Exertion 03/21/2022 Fatigue 02/19/2022 Cardiomyopathy 12/15/2021 Other Specified Glaucoma 12/15/2021 Primary Osteoarthritis Knee Bilateral 12/15/2021 Beat Premature Ventricular 12/15/2021 Nodule Pulmonary 07/21/2021 Overview (09/27/2023): Likely due to Covid infection/pneumonia Jan CT with decreased size of nodules. Repeat Chest CT [address] Sep 2023 stable No further imaging needed as no change in 2 years. Recurrent Pneumonia Personal History 01/30/2021 Overview (07/21/2021): 3 in lifetime, 3rd and worse one due to Covid in Jan 2021, hospitalized 4 days Allergy Drug Personal History 08/10/2019 Hyperplasia Endometrial Benign 10/09/2018 Gammopathy Monoclonal Nonspecific 02/18/2018 Osteopenia 02/18/2018 Overview (02/18/2018): Dexa 2017 IMPRESSION: 1. Low bone mineral density (osteopenia) . 2. The probability of major osteoporotic fracture is 8.7 % and the probability of hip fracture is 1.0 % within the next 10 years according to FRAX risk assessment. Please refer to FRAX Validity information above. Irritable Bowel Syndrome, Unspecified 01/26/2015 Deficiency Vitamin D 11/20/2013 Hyperlipidemia 11/20/2013 Rhinitis Allergic 07/13/2013 Overview (01/29/2017): date of onset unknown Fibromyalgia 06/24/2013 Overview (01/29/2017): unknown date of dx Goiter Multinodular Nontoxic 04/11/2012 Overview (08/07/2021): ENDO consult JAN 2019 Had a chance to review her ultrasound with Dr. Greer after her visit who has seen her previously and phoned patient. Relayed this nodule may contain malignancy with the most common form being papillary thyroid cancer. Discussed we could obtain FNA of this nodule or continue with observation as there has been stability dating at least back 5 years now and it remains under 1 cm. She is not overly concerned about this and is comfortable observing. Will plan to have her back in 2 years with ultrasound and labs, sooner if symptoms or concerns. JULY 2021 thyroid US: IMPRESSION: 1. Multiple bilateral thyroid nodules with low and extremely low suspicion for malignancy. A mid left thyroid nodule measures up to 2.6 cm in size and a fine-needle aspiration biopsy is suggested, although this has probably not changed significantly since 01/12/2019. 2. A 2.3 cm nodule in the lower pole of the left thyroid lobe warrants ultrasound follow-up in 2-5 years. 3. No abnormal lymphadenopathy is seen. 4. Mildly heterogeneous thyroid parenchyma can be seen in the setting of Evert's thyroiditis. 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 Vaginitis Atrophic 07/21/2021 Overview (07/21/2021): Estrogen cream Atarax - off label use - per patient as told by [facility] [place]. Screening Cancer Colon 07/21/202111/27 Overview (07/21/2021): Added automatically from request for surgery [id number] Screening Cancer Colon 07/21/202102/19 Overview (11/27/2021): Added automatically from request for surgery [id number] Nodule Pulmonary Solitary 07/21/2021 Overview (02/19/2022): Likely due to Covid infection/pneumonia Jan CT with decreased size of nodules. Plan tor repeat in July 2022 Postmenopausal Atrophic Vaginitis 07/21/2021 02/19/2022 Overview (02/19/2022): Estrogen cream Atarax - off label use - per patient as told by [facility]. Respiratory Failure With Hypoxia 04/18/2021 07/21/2021 Hypoxia 01/31/2021 04/18/2021 Hypokalemia 01/31/2021 02/20/2021 Polyp Vagina 04/23/2019 09/04/2022 Fever NOS 10/14/2018 02/19/2022 Hyperplasia Complex Endometr ial Without Atypia 10/09/2018 03/31/2019 Thickened Uterine Endometrium 10/01/2018 03/31/2019 Overview (10/01/2018): Added automatically from request for surgery [id number] Gammopathy Monoclonal 02/18/20182022 Sinusitis Chronic 03/25/2017 02/19/2022 Encounters Date Type Department Care Team Description 11/18/2023 8:30 AM CDT Comprehensive Visit Department of Orthopedic Surgery in [address] [phone] VandNena Juarez D.P.M. Arthritis Foot (Primary Dx); Pain Foot Right Discharge Disposition: Home or Self Care 11/05/2023 7:13 AM CDT - 11/05/2023 11:59 PM CDT Hospital Encounter Department of Cardiovascular Diseases in [address] [phone] Eduardo Barclay M.D. Beat Premature Ventricular; Fatigue; Pain Chest; Cardiomyopathy Dilated (HCC) Discharge Disposition: Home or Self Care 11/04/2023 1:57 PM CDT - 11/04/2023 11:59 PM CDT Hospital Encounter Department of Radiology in [address] [phone] Caroline Hurley MPAS, P.A.-C., P.A. Pain Breast; Mammographic Heterogeneous Density, Bilateral Breasts Discharge Disposition: Home or Self Care 10/22/2023 1:00 PM CDT Comprehensive Visit Department of General Surgery in [address] [phone] Caroline Hurley MPAS, P.A.-C., P.A. Risk Assessment Cancer Breast (Primary Dx); Pain Breast; Mammographic Heterogeneous Density, Bilateral Breasts; Screening Mammogram Breast Cancer Discharge Disposition: Home or Self Care 10/11/2023 12:06 PM CDT - 10/11/2023 11:59 PM CDT Hospital Encounter Department of Radiology in [address] [phone] Debi Wilcox M.D. Screening Mammogram Breast Cancer Discharge Disposition: Home or Self Care 10/11/2023 Clinical Communication Department of General Surgery in [address] [phone] Caroline Hurley MPAS, P.A.-C., P.A. Appt Request 10/03/2023 2:00 PM CDT Ancillary Procedure Department of Cardiovascular Diseases in [address] [phone] Eduardo Barclay M.D. Beat Premature Ventricular; Fatigue; Pain Chest Discharge Disposition: Home or Self Care 09/26/2023 1:48 PM CDT - 09/26/2023 11:59 PM CDT Hospital Encounter Department of Radiology in [address] [phone] Debi Wilcox M.D. Nodule Pulmonary Solitary Discharge Disposition: Home or Self Care 09/12/2023 11:38 AM CDT - 09/12/2023 11:59 PM CDT Hospital Encounter Department of Laboratory Medicine in [address] [phone] Debi Wilcox M.D. Edema Discharge Disposition: Home or Self Care 09/12/2023 10:20 AM CDT Office Visit Department of Internal Medicine in [address] [phone] Debi Wilcox M.D. Cardiomyopathy (HCC) (Primary Dx); Deficiency Vitamin D; Screening Mammogram Breast Cancer; Gammopathy Monoclonal Nonspecific; Osteopenia; Fibromyalgia; Stenosis Carotid Artery Left; Fatigue; Edema; Hyperlipidemia; Nodule Pulmonary; Gastro-Esophageal Reflux Disease With Esophagitis Without Bleeding; Nodule Pulmonary Solitary Discharge Disposition: Home or Self Care 09/11/2023 8:35 AM CDT - 09/11/2023 11:59 PM CDT Hospital Encounter Department of Laboratory Medicine in [address] [phone] Debi Wilcox M.D. Cardiomyopathy (HCC); Osteopenia; Fatigue; Fibromyalgia; Gastro-Esophageal Reflux Disease With Esophagitis Without Bleeding; Deficiency Vitamin D; Goiter Multinodular Nontoxic; Gammopathy Monoclonal Nonspecific; Other Disorders Of Iron Metabolism Discharge Disposition: Home or Self Care from Last 3 Months Immunizations Name Administration Dates Next Due Td (Adult), adsorbed 03/30/2001 Td Preservative Free (TENIVAC, DECAVAC) 08/09/19 18,03/30/2001 Td, (Adult) Unspecified 03/30/2001 Tdap 11/16/2013 Family History Medical History Relation Name Comments Hyperlipidemia Brother Denzel Coronary artery disease Father Cesar Hyperlipidemia Father Cesar Peripheral vascular disease Father Cesar Stroke Father Cesar Asthma Maternal Grandmother bian Ovarian cancer Maternal Grandmother bina in 1981 Arthritis Mother Jena Cancer Mother Jena kidney Cardiac arrhythmia Mother Jena Kidney cancer Mother Jena kidney removed Macular degeneration Mother Jena Arthritis Sister 1 Isabelle Asthma Sister 1 Isabelle Bipolar disorder Sister 1 Isabelle Hyperlipidemia Sister 1 Isabelle Thyroid disease Sister 1 Isabelle hypothyroid Thyroid disease Sister 2 Holly hypothyroid Thyroid cancer Neg Hx Relation Name Status Comments Brother Denzel Father Cesar Maternal Grandmother bina Mother Jena Sister 1 Isabelle Sister 2 Holly Alive Social History Tobacco Use Types Packs/Day Years Used Date Smoking Tobacco: Never Passive Smoke Exposure: Never Smokeless Tobacco: Never Tobacco Cessation:Counseling Given: Not Answered Alcohol Use Standard Drinks/Week Comments No 0 (1 standard drink = 0.6 oz pur e alcohol) [facility] Utilities Answer Date Recorded In the past 12 months has [employer] electric, gas, oil, or water [employer] threatened to shut off services in your [...] and Family Twice a week 11/06/2018 Attends [employer] More than 4 times per year [...] Answer Date Recorded PHQ-2 Score 0 03/29/2023 [facility] - Occupational Stress [...] your living situation today? I have a [facility] place to live 04/04/2023 Education Answer Date Recorded What is the highest level of school you have completed or the highest degree you have received? 12th grade 11/06/2018 Comments No Sex and Gender Information Value Date Recorded Sex Assigned at Female 02/14/2018 7:06 AM [employer] Legal Sex Female 6:32 AM [employer] Gender Identity Female 02/14/2018 7:06 AM [employer] Sexual Orientation Straight 02/14/2018 7: 06 AM [employer] Last Filed Vital Signs Vital Sign Reading Time Taken Comments Blood Pressure 133/81 10/22/2023 1:02 PM CDT Pulse 60 10/22/2023 1:02 PM CDT Temperature 36.6 ??C (97.8 ??F) 10/22/2023 1:02 PM CD T Respiratory Rate 19 05/22/2023 11:00 AM CDT Oxygen Saturation 98% 05/22/2023 11:00 AM CDT Inhaled Oxygen Concentration - - Weight 111 kg (244 lb 4.3 oz) 09/12/2023 9:53 AM CDT Height 162.6 cm (5' 4) 05/22/2023 9:03 AM CDT Body Mass Index 41.93 05/22/2023 9:03 AM CDT Plan of Treatment Upcoming Encounters Date Type Department Care Team (Late st Contact Info) Description 12/13/2023 7:20 AM CDT Appointment Department of Laboratory Medicine in [address] [phone] Debi Wilcox M.D. [address] [place] [phone] 03/09/2024 10:50 AM [employer] Appointment Department of Laboratory Medicine in [address] [phone] Debi Wilcox M.D. [address] [place] [phone] 03/09/2024 11:00 AM [employer] Appointment Department of Radiology in [address] [phone] Debi Wilcox M.D. [address] [place] [phone] 03/09/2024 1:00 PM [employer] Office Visit Department of Internal Medicine in [address] [phone] Debi Wilcox M.D. [address] [place] [phone] Health Maintenance Due Date Last Done Comments CT Colonography 1955 Cologuard 1955 Pneumococcal vaccine (65+ ye ars) (1 of 2 - PCV) 1962 Zoster Vaccines (1 of 2) 2006 RSV vaccine - (32-3 6 weeks) or 60+ years (1 - Risk 60-74 years 1-dose series) 2016 COVID-19 Vaccine (1 - 2023-2 5 season) 2023 Influenza Vaccine (#1) 2023 Visit: Medicare Annual Wellness 04/05/2024 Visit: Annual, age 65+ (or Medicare and <65) 09/11/2024 09/12/2023 Office Visit for Blood Press ure Check / Re-check 10/21/2024 10/22/2023 Mammogram 11/03/2024 11/04/2023, 09/13, 08/27/2022, Additional history exists Fasting Glucose for Diabetes Screening 09/10/2026 09/11/2023, 05/22/2023, 04/02/2023, Additional history exists Colonoscopy 01/29/2027 01/29/2022, 04/12, 04/11/2012 (Performed elsewhere), Additional history exists Colorectal Cancer Surveillance 01/29/2027 DTaP,Tdap,and Td Vaccines (3 - Td or Tdap) 08/09/2027 08/08/2017, 11/16/2013, 03/30/2001, Additional history exists Lipid (Cholesterol) Screening 04/02/2028, 03/15/2022, 12/19/2021, Additional history exists Hepatitis C Screening Completed 02/05/2017 Fall Risk Screen (Annual) Completed 03/29/2023 Depression Screening (Annual PHQ-2) Completed 04/04/2023, 03/29/2023 Medical Devices Implanted Type Area Fine Patcher Device Identifier Shelf Expiration Date Model / Serial / Lot Hardware E.G. Pins/Screws/Ro ds Hardware e.g. pins/screws/ rods Abdomen Description:ramon Procedures Procedure Name Priority Date/Time Associated Diagnosis Comments (TTE) 2D ECHO DOPPLER COLOR Routine 11/05/2023 8:09 AM CDT Beat Premature Ventricular Fatigue Pain Chest Cardiomyopathy Dilated (HCC) MR BREAST BILATERAL WITHOUT AND WITH IV CONTRAST RAD - Routine (most inpatients and all outpatients) 11/04/2023 3:24 PM CDT Pain Breast Mammographic Heterogeneous Density, Bilateral Breasts BI BREAST SCREENING BILATERAL WITH TOMOSYNTHESIS RAD - Routine (most inpatients and all outpatients) 10/11/2023 12:29 PM CDT Screening Mammogram Breast Cancer HOLTER MONITOR - IN CLINIC RESEARCH AGRICULTURAL ENGINEER Routine 10/04/2023 3:51 AM CDT Beat Premature Ventricular Fatigue Pain Chest CT CHEST WITHOUT IV CONTRAST RAD - Routine (most inpatients and all outpatients) 09/26/2023 2:06 PM CDT Nodule Pulmonary Solitary URINALYSIS WITH MICROSCOPIC Routine 09/12/2023 11:59 AM CDT Edema THYROID-STIMULATING HORMONE-SENSITIVE (S-TSH) Routine 09/11/2023 8:59 AM CDT Cardiomyopathy (HCC) Goiter Multinodular Nontoxic Fatigue Fibromyalgia CBC WITH DIFFERENTIAL, B Routine 09/11/2023 8:59 AM CDT Cardiomyopathy (HCC) Osteopenia Gastro-Esophageal Reflux Disease With Esophagitis Without Bleeding Fatigue Fibromyalgia BASIC METABOLIC PANEL, S/P Routine 09/11/2023 8:59 AM CDT Cardiomyopathy (HCC) Osteopenia Fatigue Fibromyalgia IRON AND TOT IRON-BINDING CAPACITY, S/P Routine 09/11/2023 8:58 AM CDT Fatigue Fibromyalgia Other Disorders Of Iron Metabolism ELECTROPHORESIS, PROTEIN, S Routine 09/11/2023 8:58 AM CDT Gammopathy Monoclonal Nonspecific Fatigue Fibromyalgia VITAMIN B12 ASSAY, S Routine 09/11/2023 8:58 AM CDT Fatigue Fibromyalgia VITAMIN D, IMMUNOASSAY, TOTAL, S Routine 09/11/2023 8:58 AM CDT Deficiency Vitamin D Fatigue Fibromyalgia HEPATIC FUNCTION PANEL, S Routine 09/11/2023 8:56 AM CDT Cardiomyopathy (HCC) Deficiency Vitamin D Screening Mammogram Breast Cancer Gammopathy Monoclonal Nonspecific Osteopenia Fibromyalgia Fatigue Edema MAGNESIUM, S Routine 09/11/2023 8:56 AM CDT Cardiomyopathy (HCC) Deficiency Vitamin D Screening Mammogram Breast Cancer Gammopathy Monoclonal Nonspecific Osteopenia Fibromyalgia Fatigue Edema LIPID PANEL, S Routine 04/02/2023 12:26 PM [employer] Hyperlipidemia Cardiomyopathy (HCC) COLONOSCOPY 01/29/2022 2:50 PM [employer] HCV AB SCRN W/REFLEX TO HCV PCR, S Routine 02/05/2017 7:17 AM [employer] WORK[employer] Arthralgia from Last 3 Months or Most Recently Relevant to Health Maintenance Results * (TTE) 2D ECHO DOPPLER COLOR [...] M.D. CV ECHO PROCEDURES Final R esult * MR Breast Bilateral without and with IV Contrast (11/04/2023 3:24 PM CDT) Anatomical Region Laterality Modality Breast, Breast Imaging RST L OS, Breast Imaging ARZ LOS, Breast Imaging FLA LOS Bilateral Magnetic Resonance Impressions 11/04/2023 3:40 PM CDT No MRI findings of malignancy. Normal breast MRI. RECOMMENDATION: ??Clinical Management Annual screening mammogram. ASSESSMENT: ??BI-RADS: 1: Negative. Narrative 11/04/2023 3:40 PM CDT EXAM: ??MR BREAST BILATERAL WITHOUT AND WITH IV CONTRAST INDICATION: ??Problem solving HISTORY: ??Asymmetric increased breast density on clinical exam with associated mastalgia. HORMONAL STATUS: ??Postmenopausal. COMPARISON: ??Prior mammograms TECHNIQUE: ??Dynamic enhanced protocol using IV contrast administration with T1 and T2-weighted images and CAD image analysis. FIBROGLANDULAR TISSUE: ??b. Scattered fibroglandular tissue. ?? BACKGROUND PARENCHYMAL ENHANCEMENT: ??b. Mild FINDINGS: RIGHT BREAST: ??No MRI findings of malignancy in the right breast. RIGHT AXILLA: ??No right axillary lymphadenopathy. ?? LEFT BREAST: ??No MRI findings of malignancy in the left breast. LEFT AXILLA: ??No left axillary lymphadenopathy. ?? CHEST WALL: ??No internal mammary lymphadenopathy. ?? Procedure Note Balwinder Boateng M.D. - 11/04/2023 EXAM: MR BREAST BILATERAL WITHOUT AND WITH IV CONTRAST INDICATION: Problem solving HISTORY: Asymmetric increased breast density on clinical exam withassociated mastalgia. HORMONAL STATUS: Postmenopausal. COMPARISON: Prior mammograms TECHNIQUE: Dynamic enhanced protocol using IV contrast administrationwith T1 and T2-weighted images and CAD image analysis. FIBROGLANDULAR TISSUE: b. Scattered fibroglandular tissue. BACKGROUND PARENCHYMAL ENHANCEMENT: b. Mild FINDINGS: RIGHT BREAST: No MRI findings of malignancy in the right breast. RIGHT AXILLA: No right axillary lymphadenopathy. LEFT BREAST: No MRI findings of malignancy in the left breast. LEFT AXILLA: No left axillary lymphadenopathy. CHEST WALL: No internal mammary lymphadenopathy. IMPRESSION: No MRI findings of malignancy. Normal breast MRI. RECOMMENDATION: Clinical Management Annual screening mammogram. ASSESSMENT: BI-RADS: 1: Negative. Caroline CANTRELL, P.A.-Nandini., P.A. IMG MRI PROCEDURES Final Result * BI Breast Screening Bilateral with Tomosynthesis (10/11/2023 12:29 PM CDT) Anatomical Region Laterality Modality Breast, Breast Imaging RST L OS, Breast Imaging ARZ LOS, Breast Imaging FLA LOS Bilateral Mammography Impressions 10/11/2023 4:01 PM CDT Negative. RECOMMENDATION: ??Annual Screening Mammogram ASSESSMENT: ??BI-RADS: 1: Negative. Narrative 10/11/2023 4:01 PM CDT EXAM: ??BI BREAST SCREENING BILATERAL WITH TOMOSYNTHESIS Current study was evaluated with a Computer Aided Detection (CAD) system. INDICATION: ??Screening mammogram. COMPARISON: ??Prior exam(s) were available and reviewed for comparison. DENSITY: ??b. There are scattered areas of fibroglandular density. FINDINGS: ??No mammographic findings of malignancy. Procedure Note Susna Luna D.O. - 10/11/2023 EXAM: BI BREAST SCREENING BILATERAL WITH TOMOSYNTHESIS Current study was evaluated with a Computer Aided Detection (CAD) system. INDICATION: Screening mammogram. COMPARISON: Prior exam(s) were available and reviewed for comparison. DENSITY: b. There are scattered areas of fibroglandular density. FINDINGS: No mammographic findings of malignancy. IMPRESSION: Negative. RECOMMENDATION: Annual Screening Mammogram ASSESSMENT: BI-RADS: 1: Negative. Debi Wilcox M.D. IMG BI PROCEDURES Final R esult * HOLTER MONITOR - IN CLINIC RESEARCH AGRICULTURAL ENGINEER (10/04/2023 3:51 AM CDT) Min Heart Rate 47 bpm INFOB IONIC MOME Max Heart Rate 92 bpm INFOB IONIC MOME Mean Heart Rate 61 bpm INFOBIONIC MOME VE Total Beats 266 count INFOB IONIC MOME VE Percent Beats less than 1 percent INFOBIONIC MOME SVE Total Beats 11 count INFOBIONIC MOME SVE Percent Beats less than 1 percent INFOBIONIC MOME AF Count 0 count INFOBIONIC MOME AF Duration 0 duration INFOBION IC MOME AF Viborg 0 percent INFOBIONIC MOME Symptom Count 0 count INFOBI ONIC MOME 10/03/2023 1:29 PM CDT Narrative INFOBIONIC MOME - 10/11/2023 2:40 PM CDT 1. The basic rhythm was sinus with sinus arrhythmia. The total analyzed time was 21h 56m. The heart rate varied from 47 to 92 bpm. The average HR was 61 bpm. 2. Premature ventricular complexes were noted singly, paired, and in a bigeminal pattern. There were 266 PVCs recorded with a PVC burden of less than 1%. 3. Premature supraventricular complexes were noted singly, paired, and in one 3- beat atrial run with a rate of 141 bpm. There were 11 PACs recorded with a PAC burden of less than 1%. 4. No symptomatic events were noted. Transitional Care Manager: FRANCISCO Sierra / FRANCISCO Black Procedure Note Balwinder Muhammad M.D. - 10/11/2023 1. The basic rhythm was sinus with sinus arrhythmia. The total analyzedtime was 21h 56m. The heart rate varied from 47 to 92 bpm. The average HRwas 61 bpm. 2. Premature ventricular complexes were noted singly, paired, and in abigeminal pattern. There were 266 PVCs recorded with a PVC burden of lessthan 1%. 3. Premature supraventricular complexes were noted singly, paired, and inone 3- beat atrial run with a rate of 141 bpm. There were 11 PACs recordedwith a PAC burden of less than 1%. 4. No symptomatic events were noted. Transitional Care Manager: FRANCISCO Sierra / FRANCISCO Black us Eduardo Barclay M.D. CV CARDIAC SERVICES PROCED URES Final Result MOI BARRIOS NA * CT Chest without IV Contrast (09/26/2023 2:06 PM CDT) Anatomical Region Laterality Modality Chest, Thoracic RST LOS, Tho racic ARZ LOS, Thoracic FLA LOS N/A Computed Tomography Impressions 09/26/2023 2:49 PM CDT Stable likely benign sub-6 mm pulmonary nodules. Narrative 09/26/2023 2:49 PM CDT EXAM: CT CHEST WITHOUT IV CONTRAST COMPARISON: July 2022 FINDINGS: Stable few small scattered pulmonary nodular opacities measuring up to 4 mm. No suspicious pulmonary nodule. No focal pulmonary consolidation or pleural effusion. Normal heart size. Normal caliber thoracic aorta. Cholecystectomy. Spondylosis. Negative for acute or aggressive appearing skeletal lesion. 3D maximum intensity projection (MIP) images were created on a dependent workstation as ordered by the treating provider and reviewed by the radiologist to increase sensitivity for detection of pulmonary nodules. Procedure Note Vamsi Coreas M.D. - 09/26/2023 EXAM: CT CHEST WITHOUT IV CONTRAST COMPARISON: July 2022 FINDINGS: Stable few small scattered pulmonary nodular opacities measuringup to 4 mm. No suspicious pulmonary nodule. No focal pulmonaryconsolidation or pleural effusion. Normal heart size. Normal caliberthoracic aorta. Cholecystectomy. Spondylosis. Negative for acute or aggressive appearing skeletal lesion. 3D maximum intensity projection (MIP) images were created on a dependentworkstation as ordered by the treating provider and reviewed by theradiologist to increase sensitivity for detection of pulmonary nodules. IMPRESSION: Stable likely benign sub-6 mm pulmonary nodules. us Debi Wilcox M.D. IMG CT PROCEDURES Final R esult * Urinalysis, with Microscopic: Urine, Midstream (09/12/2023 11:59 AM CDT) Source Urine, Urine, Midstream 09/12/2023 12:03 PM CDT [facility] Clarity Clear Clear 09/12/2023 12:03 PM CDT [facility] Color Yellow 09/12/2023 12:03 PM CDT [facility] Comment: ----REFERENCE VALUE---- Colorless Yellow Amanda Blood Negative Negative 09/12/2023 12:03 PM CDT [facility] Nitrite Negative Negative 09/12/2023 12:03 PM CDT [facility] Leukocyte Esterase Negative Negative 09/12/2023 12:03 PM CDT [facility] Protein Negative mg/dL 09/12/2023 12:03 PM CDT [facility] Comment: ----REFERENCE VALUE---- Negative Trace Glucose Negative Negative mg/dL 09/12/2023 12:03 PM CDT [facility] Ketone Negative Negative mg/dL 09/12/2023 12:03 PM CDT [facility] Bilirubin Negative Negative 09/12/2023 12:03 PM CDT [facility] pH 5.5 5.0 - 8.0 09/12/2023 12:03 PM CDT [facility] Specific Cameron 1.024 1.001 - 1.035 09/12/2023 12:03 PM CDT [facility] Urobilinogen 0.2 0.2 - 1.0 mg/dL 09/12/2023 12:03 PM CDT [facility] White Blood Cells None Seen /hpf 09/12/2023 12:11 PM CDT [facility] Comment: ----REFERENCE VALUE---- Males: 0-3 Females: 0-10 Unknown: 0-10 Red Blood Cells Occ-2 0 - 2 /hpf 12:11 PM CDT [facility] Hyaline Casts 1-3 /lpf 09/12/2023 12:11 PM CDT [facility] Squamous Cells Occ-3 /hpf 09/12/2023 12:11 PM CDT [facility] Urine (Urine, Midstream) 09/12/2023 11:59 AM CDT 09/12/2023 11:59 AM CDT us Debi Wilcox M.D. LAB URINE ORDERABLES Shefali salmon Result [facility] [address] [place] [address], [facility] RDWG [facility] [place] [address] [place] [address] * (ABNORMAL) CBC with Differential, Blood (09/11/2023 8:59 AM CDT) Hemoglobin 13.8 11.6 - 15.0 g/dL 09/11/2023 9:10 AM CDT [facility] Hematocrit 40.4 35.5 - 44.9 % 09/11/2023 9:10 AM CDT [facility] Erythrocytes 4.22 3.92 - 5.13 x10(12)/L 09/11/2023 9:10 AM CDT [facility] MCV 95.7 78.2 - 97.9 fL 09/11/2023 9:10 AM CDT [facility] RBC Distrib Width 12.1(L) 12.2 - 16.1 % 09/11/2023 9:10 AM CDT [facility] Platelet Count 159 157 - 371 x10(9)/L 09/11/2023 9:10 AM CDT [facility] Leukocytes 6.7 3.4 - 9.6 x10(9)/L 09/11/2023 9:10 AM CDT [facility] Neutrophils 3.64 1.56 - 6.45 x10(9)/L 09/11/2023 9:10 AM CDT [facility] Lymphocytes 2.23 0.95 - 3.07 x10(9)/L 09/11/2023 9:10 AM CDT [facility] Monocytes 0.45 0.26 - 0.81 x10(9)/L 09/11/2023 9:10 AM CDT [facility] Eosinophils 0.27 0.03 - 0.48 x10(9)/L 09/11/2023 9:10 AM CDT [facility] Basophils 0.07 0.01 - 0.08 x10(9)/L 09/11/2023 9:10 AM CDT [facility] Blood (Blood, Venous) 09/11/2023 8:59 AM CDT 09/11/2023 9:00 AM CDT us Debi Wilcox M.D. LAB BLOOD ADD-ON Final Re sult [facility] [address] [place] [address], [facility] RDWG [facility] [place] [address] * S-TSH (Thyroid-Stimulating Hormone - Sensitive) (09/11/2023 8:59 AM CDT) Pathologist [facility] TSH, Sensitive 1.2 0.3 - 4.2 mIU/L 09/11/2023 9:30 AM CDT [facility] Blood (Blood, Venous) 09/11/2023 8:59 AM CDT 09/11/2023 9:00 AM CDT us Debi Wilcox M.D. LAB BLOOD ADD-ON Final Re sult Performing Organization Address City/[facility]/ZIP Co de Phone Number [facility] [address] [address], [facility] RDWG [facility] [place] [address] * (ABNORMAL) Basic Metabolic Panel (09/11/2023 8:59 AM CDT) Potassium, P 4.1 3.6 - 5.2 mmol/L 09/11/2023 9:21 AM CDT [facility] Sodium, P 143 135 - 145 mmol/L 09/11/2023 9:21 AM CDT [facility] Chloride, P 108(H) 98 - 107 mmol/L 09/11/2023 9:21 AM CDT [facility] Bicarbonate, P 26 22 - 29 mmol/L 09/11/2023 9:21 AM CDT [facility] Anion Gap, P 9 7 - 15 09/11/2023 9:21 AM CDT [facility] BUN (Blood Urea Nitrogen), P 14 6 - 21 mg/dL 09/11/2023 9:21 AM CDT [facility] Creatinine 0.95 0.59 - 1.04 mg/dL 09/11/2023 9:21 AM CDT R[facility] Estimated GFR (eGFR) 66 >=60 mL/min/BSA 09/11/2023 9:21 AM CDT [facility] Comment: Estimated GFR calculated using the 2020 CKD_EPI creatinine equation. Calcium, Total, P 9.0 8.8 - 10.2 mg/dL 09/11/2023 9:21 AM CDT [facility] Glucose, P 111 70 - 140 mg/dL 09/11/2023 9:21 AM CDT [facility] Blood (Blood, Venous) 09/11/2023 8:59 AM CDT 09/11/2023 9:00 AM CDT us Debi Wilcox M.D. LAB BLOOD ADD-ON Final Re sult Performing Organization Address [facility] Co de Phone Number [facility] [address] [place] [address], [facility] RDWG [facility] [place] [address] * Vitamin D, Immunoassay, Total, Serum (09/11/2023 8:58 AM CDT) [facility] Vitamin D, Immunoassay, Total, S 23 20 - 80 ng/mL 09/11/2023 2:57 PM CDT ECLR Comment: Optimum levels within the healthy population are 20-50, patients with bone disease may benefit from high levels within this range Blood (Blood, Venous) 09/11/2023 8:58 AM CDT 09/11/2023 2:17 PM CDT us Debi Wilcox M.D. LAB BLOOD ADD-ON Final Re sult Performing Organization Address City/[facility]/ZIP Co de Phone Number [facility] [address] [place] [address], [facility] ECLR [address] [address] * Iron and Total Iron-Binding Capacity (09/11/2023 8:58 AM CDT) Iron 144 35 - 145 mcg/dL 09/11/2023 10:06 AM CDT R[facility] Total Iron Binding Capacity 295 250 - 400 mcg/dL 09/11/2023 10:06 AM CDT [facility] Percent Saturation 49 14 - 50 % 09/11/2023 10:06 AM CDT [facility] Blood (Blood, Venous) 09/11/2023 8:58 AM CDT 09/11/2023 9:00 AM CDT us Debi Wilcox M.D. LAB BLOOD ADD-ON Final Re sult [facility] [address] [place] [address], [facility] RDWG [facility] [place] [address] [place] [address] * Electrophoresis, Protein (09/11/2023 8:58 AM CDT) Total Protein, S 6.4 6.3 - 7.9 g/dL 09/11/2023 2:36 PM CDT ECL[facility] Albumin 4.2 3.4 - 4.7 g/dL 09/13/2023 10:31 AM CDT ECL[facility] Alpha-1 Globulin 0.2 0.1 - 0.3 g/dL 09/13/2023 10:31 AM CDT ECL[facility] Alpha-2 Globulin 0.6 0.6 - 1.0 g/dL 09/13/2023 10:31 AM CDT [facility] Beta-Globulin 0.7 0.7 - 1.2 g/dL 09/13/2023 10:31 AM CDT [facility] Gamma-Globulin 0.7 0.6 - 1.6 g/dL 09/13/2023 10:31 AM CDT E[facility] A/G Ratio 1.96 09/13/2023 10:31 AM CDT ECLR Impression Small abnormality in gamma fraction. Reviewed and interpreted by: ??Sushila Humphreys M.D. 09/13/2023 10:31 AM CDT ECL[facility] Blood (Blood, Venous) 09/11/2023 8:58 AM CDT 09/11/2023 2:17 PM CDT Narrative [facility] - 09/13/2023 10:31 AM CDT Specimen Information: Specimen ID: [id number] Specimen Type: Blood Specimen Collection Start Date: 09/11/2023 ??8:58 AM Specimen Received Date: 09/11/2023 ??2:17 PM Specimen ID: [id number] Specimen Type: Blood Specimen Collection Start Date: 09/11/2023 ??8:59 AM Specimen Received Date: 09/11/2023 ??2:17 PM us Debi Wilcox M.D. LAB BLOOD ADD-ON Final Re sult Performing Organization Address City/[facility] de Phone Number [facility] [address] [place] [address], [facility] ECLR [facility] [place] [address] [place] [phone] * Vitamin B12 Assay (09/11/2023 8:58 AM CDT) [facility] Vitamin B12 Assay, S 619 232 - 1245 ng/L 09/11/2023 2:57 PM CDT ECLR Comment: Biotin has been identified by the manufacturer representative as a potential interfering substance. Higher concentrations of biotin may be found in multivitamins, hair/nail supplements, and workout supplements. If the result does not match clinical observations, repeat testing after patient refrains from the use of supplements for at least 12 hours. Blood (Blood, Venous) 09/11/2023 8:58 AM CDT 09/11/2023 2:17 PM CDT us Debi Wilcox M.D. LAB BLOOD ADD-ON Final Re sult [facility] [address] [place] [address], [facility] ECLR [facility] [place] [address] [place] [address] * Hepatic Function Panel (09/11/2023 8:56 AM CDT) Bilirubin, Total, P 0.6 0.0 - 1.2 mg/dL 09/12/2023 12:28 PM CDT R[facility] Bilirubin, Direct, P <0.2 0.0 - 0.3 mg/dL 09/12/2023 12:28 PM CDT R[facility] Aspartate Aminotransferase (AST), P 25 8 - 43 U/L 09/12/2023 12:28 PM CDT R[facility] Alanine Aminotransferase (ALT), P 26 7 - 45 U/L 09/12/2023 12:28 PM CDT [facility] Alkaline Phosphatase, P 87 35 - 104 U/L 09/12/2023 12:28 PM CDT R[facility] Albumin, P 4.1 3.5 - 5.0 g/dL 09/12/2023 12:28 PM CDT R[facility] Protein, Total, P 6.4 6.3 - 7.9 g/dL 09/12/2023 12:28 PM CDT R[facility] Blood (Blood, Venous) 09/11/2023 8:56 AM CDT 09/12/2023 11:48 AM CDT us Debi Wilcox M.D. LAB BLOOD ADD-ON Final Re roderickt [facility] [address] [address], [place] RDWG [facility] [place] [address] [address] * Magnesium (09/11/2023 8:56 AM CDT) Magnesium, P 2.0 1.7 - 2.3 mg/dL 09/12/2023 12:28 PM CDT RDW[facility] Blood (Blood, Venous) 09/11/2023 8:56 AM CDT 09/12/2023 11:48 AM CDT us Debi Wilcox M.D. LAB BLOOD ADD-ON Final Re sult [facility] [address] [place] [address], [facility] RDWG [facility] [place] [address] [place] [address] * (ABNORMAL) Lipid Panel (04/02/2023 12:26 PM [employer]) Triglycerides 305(H) mg/dL 04/02/2023 12:46 PM [employer] CNFL Comment: ----REFERENCE VALUE---- Normal: <150 mg/dL Borderline High: 150-199 mg/dL High: 200-499 mg/dL Very High: > or =500 mg/dL Cholesterol, Total 264(H) mg/dL 2023 12:46 PM [employer] CNFL Comment: ----REFERENCE VALUE---- Desirable: < 200 mg/dL Borderline High: 200 - 239 mg/dL High: > or = 240 mg/dL Cholesterol, LDL, Calculated 162(H) mg/dL 04/02/2023 12:46 PM [employer] CNFL Comment: ----REFERENCE VALUE---- Desirable: <100 mg/dL Above Desirable: 100-129 mg/dL Borderline High: 130-159 mg/dL High: 160-189 mg/dL Very High: >=190 mg/dL ----ADDITIONAL INFORMATION---- LDL cholesterol calculated using the Munroe/NIH equation. Cholesterol, HDL 45(L) >=50 mg/dL 04/02/19 12:46 PM [employer] CNFL Cholesterol, Non-HDL, Calculated 219(H) mg/dL 04/02/2023 12:46 PM [employer] CNFL Comment: ----REFERENCE VALUE---- Desirable: <130 mg/dL Above Desirable: 130-159 mg/dL Borderline High: 160-189 mg/dL High: 190-219 mg/dL Very High: > or =220 mg/dL Fasting (8 HR or more) No 04/02/2023 12:27 PM [employer] CNFL Blood (Blood, Venous) 04/02/2023 12:26 PM [employer] 04/02/2023 12:27 PM [employer] us Debi Wilcox M.D. LAB BLOOD ADD-ON Final Re sult [facility] [address] [place] [address], [facility] CNFL [facility] [address] [address] * COLONOSCOPY (01/29/2022 2:50 PM [employer]) Narrative Procedure Note Desmond Humphreys M.D. - 01/29/2022 2:50 PM CST [facility] [place] [facility] Patient Name: Gabriela Carlisle Procedure Date: 01/29/2022 2:50 PM Date of : 1955 Age: 66 Gender: Female Procedure: Colonoscopy Providers: Debi Upton (Ordering Provider) Referring Provider: Deib Wilcox Pre-op Diagnoses: Screening for colorectal malignant neoplasm Post-op Diagnoses: - Three 3 to 6 mm polyps in the sigmoid colon and in the ascending colon, removed with a cold snare. Resected and retrieved. - Diverticulosis from sigmoid to descending colon. - The examination was otherwise normal. Recommendation: - Repeat colonoscopy in 5 years for surveillance. Findings: Three flat and sessile polyps were found in the sigmoid colon and ascending colon. The polyps were 3 to 6 mm in size. These polyps were removed with a cold snare. Resection and retrieval were complete. Multiple medium-mouthed diverticula were found from sigmoid to descending colon. The exam was otherwise without abnormality. Medicines: Monitored Anesthesia Care Estimated Blood Loss: Estimated blood loss was minimal. Complications: No immediate complications. Estimated blood loss: Minimal. Procedure Details: The patient was seen, evaluated, and history reviewed. Airway and heart and lung exams were performed and were satisfactory for plannedsedation care. The risks, benefits and alternatives for the procedure and sedation were discussed andinformed consent was obtained. A procedural pause was conducted in the presence of assisting personnelto verify the correct patient identity and procedureto be performed. Throughout the procedure, the patient's blood pressure, pulse, and oxygen saturations were monitored continuously. The Colonoscope was introduced under directvision through the anus and advanced to the terminalileum. The colonoscopy was performed without difficulty. The patient tolerated the procedure well. The quality of the bowel preparation was evaluatedusing the BBPS ([place] Bowel Preparation Scale) with scores of: Right Colon = 3, Transverse Colon = 3and Left Colon = 3 (entire mucosa seen well with no residual staining, small fragments of stool or opaque liquid). The total BBPS score equals 9. Sedation: Anesthesia was administered by an anesthesia professional. Thefollowing parameters were monitored: oxygen saturation, heart rate, blood pressure, respiratory rate, EKG, adequacy of pulmonary ventilation,and response to care. Desmond Humphreys, 01/29/2022 2:54:18 PM This report has been signed electronically. Number of Addenda: 0 Note Initiated On: 01/29/2022 2:50 PM us Debi Wilcox M.D. GI PROCEDURE ORDERABLES F inal Result * HCV AB Scrn w/Reflex to HCV PCR, S (02/05/2017 7:17 AM [employer]) HCV Ab Screen, S Nonreactive Nonreactive 02/06/2017 7:28 AM [employer] [facility] Blood (Blood, Venous) 02/05/2017 7:17 AM [employer] 02/05/2017 3:35 PM [employer] Narrative [facility] - 02/06/2017 7:28 AM [employer] Specimen Information: Specimen ID: [id number] Specimen Type: Blood Specimen Collection Start Date: 02/05/2017 ??7:17 AM Specimen Received Date: 02/05/2017 ??3:35 PM Specimen ID: [id number] Specimen Type: Blood Specimen Collection Start Date: 02/05/2017 ??7:17 AM Specimen Received Date: 02/05/2017 ??3:35 PM Debi Wilcox M.D. LAB MICROBIOLOGY - BLOOD ORDERABLES Final Result [facility] [address] [place] [address], [facility] from Last 3 Months or Most Recently Relevant to Health Maintenance Insurance [employer] MEDICARE Advance Directives For more information, please contact: [phone] * Full Code (Latest Code Status on File) Date Activated Date Inactivated Comments 01/30/2021 8:14 PM 02/03/2021 8:23 PM Question Answer Comments Full Code: Not Discussed Due to: Patient not available * Full Code Date Activated Date Inactivated Comments 10/09/2018 10:47 PM 10/10/2018 1:11 PM Question Answer Comments Full Code: Discussed * Full Code Date Activated Date Inactivated Comments 10/09/2018 7:02 AM 10/09/2018 10:47 PM Question Answer Comments Full Code: Discussed Care Teams Bit Shaver Relationship Specialty Start Date End Date Debi Wilcox M.D. [address] [place] [id number] PCP - General Internal Medicine 10/01/18
--- OUTSIDE RECORDS SUMMARY | 2023-11-28 12:05 | XMS_ITS ---
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 Procedure Estimated Blood Loss Check Surgery Details section. Procedure Findings Check Surgery Details section. Procedure Specimens Taken Check Surgery Details section.
--- OUTSIDE RECORDS SUMMARY | 2023-11-28 12:05 | XMS_ITS | Referral Summary ---
Author Organization [facility] Address [address] [place] [address] Care Team Providers Care Chief Medical Officer Name Role Phone Debi Wilcox M.D. Primary Care Provider [phone] Source Comments Patient records contain information from all sites at [facility]. For routine questions regarding patient records, call [phone] during business hours, M-F 8:00 AM - 5:00 PM Central Time. Record requests for emergency care only can be directed to [phone] at any time.[facility] Encounters Date Type Department Care Team Description 11/18/2023 8:30 AM CDT Comprehensive Visit Department of Orthopedic Surgery in [address] [phone] Nena Calderon D.P.M. Arthritis Foot (Primary Dx); Pain Foot Right Discharge Disposition: Home or Self Care 11/05/2023 7:13 AM CDT - 11/05/2023 11:59 PM CDT Hospital Encounter Department of Cardiovascular Diseases in [address] [phone] Eduardo Barclay M.D. Beat Premature Ventricular; Fatigue; Pain Chest; Cardiomyopathy Dilated (HCC) Discharge Disposition: Home or Self Care 11/04/2023 1:57 PM CDT - 11/04/2023 11:59 PM CDT Hospital Encounter Department of Radiology in [address] [phone] Caroline Hurley MPAS, P.A.-C., P.A. Pain Breast; Mammographic Heterogeneous Density, Bilateral Breasts Discharge Disposition: Home or Self Care 10/22/2023 1:00 PM CDT Comprehensive Visit Department of General Surgery in [address] [phone] Caroline Hurley MPAS, P.A.MyronC., P.A. Risk Assessment Cancer Breast (Primary Dx); Pain Breast; Mammographic Heterogeneous Density, Bilateral Breasts; Screening Mammogram Breast Cancer Discharge Disposition: Home or Self Care 10/11/2023 Clinical Communication Department of General Surgery in [address] [phone] Caroline Hurley MPAS, P.A.Karla., P.A. Appt Request 10/11/2023 12:06 PM CDT - 10/11/2023 11:59 PM CDT Hospital Encounter Department of Radiology in [address] [phone] Debi Wilcox M.D. Screening Mammogram Breast Cancer Discharge Disposition: Home or Self Care 10/03/2023 2:00 PM CDT Ancillary Procedure Department of Cardiovascular Diseases in [address] [phone] Eduardo Barclay M.D. Beat Premature Ventricular; Fatigue; Pain Chest Discharge Disposition: Home or Self Care 09/26/2023 1:48 PM CDT - 09/26/2023 11:59 PM CDT Hospital Encounter Department of Radiology in [address] [phone] Debi Wilcox M.D. Nodule Pulmonary Solitary Discharge Disposition: Home or Self Care 09/12/2023 11:38 AM CDT - 09/12/2023 11:59 PM CDT Hospital Encounter Department of Laboratory Medicine in [address] [phone] Debi Wilcox M.D. Edema Discharge Disposition: Home or Self Care 09/12/2023 10:20 AM CDT Office Visit Department of Internal Medicine in [address] [phone] Debi Wilcox M.D. Cardiomyopathy (HCC) (Primary Dx); Deficiency Vitamin D; Screening Mammogram Breast Cancer; Gammopathy Monoclonal Nonspecific; Osteopenia; Fibromyalgia; Stenosis Carotid Artery Left; Fatigue; Edema; Hyperlipidemia; Nodule Pulmonary; Gastro-Esophageal Reflux Disease With Esophagitis Without Bleeding; Nodule Pulmonary Solitary Discharge Disposition: Home or Self Care 09/11/2023 8:35 AM CDT - 09/11/2023 11:59 PM CDT Hospital Encounter Department of Laboratory Medicine in [address] [phone] Debi Wilcox M.D. Cardiomyopathy (HCC); Osteopenia; Fatigue; Fibromyalgia; Gastro-Esophageal Reflux Disease With Esophagitis Without Bleeding; Deficiency Vitamin D; Goiter Multinodular Nontoxic; Gammopathy Monoclonal Nonspecific; Other Disorders Of Iron Metabolism Discharge Disposition: Home or Self Care from Last 3 Months Allergies Active Allergy Reactions Criticality Noted Date Comments Adhesive Tape-Silicones Rash 12/04/2013 Amoxicillin Other (see comments) 01/10/2021 Cefaclor Shortness of breath (Reselect Reaction),Rash,Hives (Reselect Reaction) High 04/30/2014 Cephalexin Other (see comments) 01/10/2021 Ciprofloxacin Anaphylaxis,Hives (Reselect Reaction),Shortness of breath (Reselect Reaction),Rash High 04/30/2014 Mcgregor Anaphylaxis High 08/13/2018 Egg Nausea And Vomiting,GI intolerance,Headache, Other (see comments) High 08/13/2018 Esophageal burning Levofloxacin Anaphylaxis,Hives (Reselect Reaction),Shortness of breath (Reselect Reaction) High 10/03/2001 Levaquin Other reaction(s): Urticaria/Hives Penicillin V Potassium Other (see comments) Sulfa (Sulfonamide Antibiotics) Rash Medium 10/03/2001 Other reaction(s): Urticaria/Hives Sulfacetamide Sodium Other (see comments) 01/10 Sulfamethoxazole-Trimet [facility] GI intolerance High 06/05/2022 Medications * This [...] use - [facility] Screening Cancer Colon 07/21/202111/27 Overview (07/21/2021): Added automatically from request for surgery [id number] Screening Cancer Colon 07/21/202102/19 Overview (11/27/2021): Added automatically from request for surgery [id number] Nodule Pulmonary Solitary 07/21/2021 Overview (02/19/2022): Likely due to Covid infection/pneumonia Jan CT with decreased size of nodules. Plan tor repeat in July 2022 Postmenopausal Atrophic Vaginitis 07/21/2021 02/19/2022 Overview (02/19/2022): Estrogen cream Atarax - off label use - per patient as told by [facility]. Respiratory Failure With Hypoxia 04/18/2021 07/21/2021 Hypoxia 01/31/2021 04/18/2021 Hypokalemia 01/31/2021 02/20/2021 Polyp Vagina 04/23/2019 09/04/2022 Fever NOS 10/14/2018 02/19/2022 Hyperplasia Complex Endometr ial Without Atypia 10/09/2018 03/31/2019 Thickened Uterine Endometrium 10/01/2018 03/31/2019 Overview (10/01/2018): Added automatically from request for surgery [id number] Gammopathy Monoclonal 02/18/20182022 Sinusitis Chronic 03/25/2017 02/19/2022 Immunizations Name Administration Dates Next Due Td (Adult), adsorbed 03/30/2001 Td Preservative Free (TENIVAC, DECAVAC) 08/09/19 18,03/30/2001 Td, (Adult) Unspecified 03/30/2001 Tdap 11/16/2013 Social History Tobacco Use Types Packs/Day Years Used Date Smoking Tobacco: Never Passive Smoke Exposure: Never Smokeless Tobacco: Never Tobacco Cessation:Counseling Given: Not Answered Alcohol Use Standard Drinks/Week Comments No 0 (1 standard drink = 0.6 oz pur e alcohol) [facility] Utilities Answer Date Recorded In the past 12 months has th e electric, gas, oil, or water company threatened [...] and Family Twice a week 11/06/2018 Attends [employer] More than 4 times per year [...] Answer Date Recorded PHQ-2 Score 0 03/29/2023 [facility] - Occupational Stress [...] your living situation today? I have a [facility] place to live 04/04/2023 Education Answer Date Recorded What is the highest level of school you have completed or the highest degree you have received? 12th grade 11/06/2018 Comments No Sex and Gender Information Value Date Recorded Sex Assigned at Female 02/14/2018 7:06 AM BORDER PATROL AGENT Legal Sex Female 6:32 AM BORDER PATROL AGENT Gender Identity Female 02/14/2018 7:06 AM BORDER PATROL AGENT Sexual Orientation Straight 02/14/2018 7: 06 AM BORDER PATROL AGENT Last Filed Vital Signs Vital Sign Reading [...] CDT Appointment Department of Laboratory Medicine in [address] [phone] Debi Wilcox M.D. [address] [place] [phone] 03/09/2024 10:50 AM BORDER PATROL AGENT Appointment Department of Laboratory Medicine in [address] [phone] Debi Wilcox M.D. [address] [place] [phone] 03/09/2024 11:00 AM BORDER PATROL AGENT Appointment Department of Radiology in [address] [phone] Debi Wilcox M.D. [address] [place] [phone] 03/09/2024 1:00 PM BORDER PATROL AGENT Office Visit Department of Internal Medicine in [address] [phone] Debi Wilcox M.D. [address] [place] [phone] Medical Devices Implanted Type Area Heavy Equipment Engine Mechanic Device Identifier Shelf Expiration Date Model / [...] Breast Cancer HOLTER MONITOR - IN CL[employer]IC [employer]ER [employer] SANDER Routine 10/04/2023 3:51 AM CDT Beat Premature [...] LIPID PANEL, S Routine 04/02/2023 12:26 PM BORDER PATROL AGENT Hyperlipidemia Cardiomyopathy (HCC) COLONOSCOPY 01/29/2022 2:50 PM BORDER PATROL AGENT HCV AB SCRN W/REFLEX TO HCV PCR, S Routine 02/05/2017 7:17 AM BORDER PATROL AGENT Arthralgia from Last 3 Months or Most [...] screening mammogram. ASSESSMENT: BI-RADS: 1: Negative. Caroline CANTRELL P.A.-C., P.A. IMG MRI PROCEDURES Final Result * [...] ??No mammographic findings of malignancy. Procedure Note Susan Luna D.O. - 10/11/2023 EXAM: BI BREAST SCREENING BILATERAL WITH TOMOSYNTHESIS Current study was evaluated with a Computer Aided Detection (CAD) system. INDICATION: Screening mammogram. COMPARISON: Prior exam(s) were available and reviewed for comparison. DENSITY: b. There are scattered areas of fibroglandular density. FINDINGS: No mammographic findings of malignancy. IMPRESSION: Negative. RECOMMENDATION: Annual Screening Mammogram ASSESSMENT: BI-RADS: 1: Negative. Debi Wilcox M.D. IMBia BI PROCEDURES Final R esult * HOLTER MONITOR - [employer] CL[employer]IC [employer] SANDER (10/04/2023 3:51 AM CDT) Min Heart Rate [...] Duration 0 duration INFOBION IC MOME AF [place] 0 percent INFOBIONIC MOME Symptom Count 0 [...] 1%. 4. No symptomatic events were noted. Academic Department Chair: FRANCISCO Sierra / FRANCISCO Black Procedure Note [...] 1%. 4. No symptomatic events were noted. Academic Department Chair: FRANCISCO Sierra / FRANCISCO Black Eduardo Barclay M.D. CV C[facility] SERVICES PROCED [...] Stable likely benign sub-6 mm pulmonary nodules. Debi Wilcox M.D. [facility] PROCEDURES Final R esult * Urinalysis, [...] 8.0 09/12/2023 12:03 PM CDT RDWG Specific [place] 1.024 1.001 - 1.035 09/12/2023 12:03 PM [...] Debi Wilcox M.D. LAB URINE ORDERABLES Shefali l Result [facility] [address] [place] [address], [facility] RDWG [facility] in [place] [address] [place] [address] [place] [phone] * (ABNORMAL) CBC with Differential, Blood (09/11/2023 8:59 AM CDT) [facility] Hemoglobin 13.8 11.6 - 15.0 g/dL 09/11/2023 [...] M.D. LAB BLOOD ADD-ON Final Re sult [facility] [address] [place] [address], [facility] RDWG [facility] in [place] [address] [place] [phone] * S-TSH (Thyroid-Stimulating Hormone - Sensitive) (09/11/2023 8:59 AM CDT) TSH, Sensitive 1.2 0.3 - 4.2 mIU/L 09/11/2023 9:30 AM CDT RDWG Blood (Blood, Venous) 09/11/2023 8:59 AM CDT 09/11/2023 9:00 AM CDT us Debi Wilcox M.D. LAB BLOOD ADD-ON Final Re sult [facility] [address] [place] [address], [facility] RDWG [facility] [place] [address] [place] [phone] * (ABNORMAL) Basic Metabolic Panel (09/11/2023 8:59 AM CDT) Pathologist [facility] Potassium, P 4.1 3.6 - 5.2 mmol/L [...] ADD-ON Final Re sult Performing Organization Address [facility] Co de Phone Number [facility] [address] [place] [address], [facility] RDWG [facility] in [place] [address] [place] [phone] * Vitamin D, Immunoassay, Total, Serum (09/11/2023 8:58 AM CDT) Vitamin D, Immunoassay, Total, S 23 20 - 80 ng/mL 09/11/2023 2:57 PM CDT ECLR Comment: Optimum levels within the healthy population are 20-50, patients with bone disease may benefit from high levels within this range Blood (Blood, Venous) 09/11/2023 8:58 AM CDT 09/11/2023 2:17 PM CDT us Debi Wilcox M.D. LAB BLOOD ADD-ON Final Re sult Performing Organization Address [facility] Co de Phone Number [facility] [address] [place] [address], [facility] ECLR [address] [address] * Iron and Total Iron-Binding Capacity (09/11/2023 [...] M.D. LAB BLOOD ADD-ON Final Re sult [facility] [address] [place] [address], [facility] RDWG [facility] [place] [address] [facility] [place] [address] * Electrophoresis, Protein (09/11/2023 8:58 AM CDT) [...] AM CDT 09/11/2023 2:17 PM CDT Narrative [facility] - 09/13/2023 10:31 AM CDT Specimen Information: Specimen ID: [id number] Specimen Type: Blood Specimen Collection Start Date: 09/11/2023 ??8:58 AM Specimen Received Date: 09/11/2023 ??2:17 PM Specimen ID: [id number] Specimen Type: Blood Specimen Collection Start Date: 09/11/2023 ??8:59 AM Specimen Received Date: 09/11/2023 ??2:17 PM us Debi Wilcox M.D. LAB BLOOD ADD-ON Final Re sult Performing Organization Address [facility]/ZIP Co de Phone Number [facility] [address] [place] [address], [facility] ECLR [address] [address] [address] [place] [phone] * Vitamin B12 Assay (09/11/2023 8:58 AM CDT) [facility] Vitamin B12 Assay, S 619 232 - 1245 ng/L 09/11/2023 2:57 PM CDT ECLR Comment: Biotin has been identified by the package car driver as a potential interfering substance. Higher concentrations [...] ADD-ON Final Re sult Performing Organization Address City/[facility]/ZIP Co de Phone Number [facility] [address] [place] [address], [facility] ECLR [facility] in [address] [address] * Hepatic Function Panel (09/11/2023 8:56 AM [...] M.D. LAB BLOOD ADD-ON Final Re sult [facility] [address] [place] [address], [facility] RDWG [facility] [place] [address] [place] [address] * Magnesium (09/11/2023 8:56 AM CDT) Magnesium, P 2.0 1.7 - 2.3 mg/dL 09/12/2023 12:28 PM CDT RDWG Blood (Blood, Venous) 09/11/2023 8:56 AM CDT 09/12/2023 11:48 AM CDT us Debi Wilcox M.D. LAB BLOOD ADD-ON Final Re sult [facility] [address] [place] [address], [place] RDWG [facility] [place] [address] [place] [address] * (ABNORMAL) Lipid Panel (04/02/2023 12:26 PM BORDER PATROL AGENT) Triglycerides 305(H) mg/dL 04/02/2023 12:46 PM BORDER PATROL AGENT CNFL Comment: ----REFERENCE VALUE---- Normal: <150 mg/dL Borderline High: 150-199 mg/dL High: 200-499 mg/dL Very High: > or =500 mg/dL Cholesterol, Total 264(H) mg/dL 2023 12:46 PM BORDER PATROL AGENT CNFL Comment: ----REFERENCE VALUE---- Desirable: < 200 mg/dL Borderline High: 200 - 239 mg/dL High: > or = 240 mg/dL Cholesterol, LDL, Calculated 162(H) mg/dL 04/02/2023 12:46 PM BORDER PATROL AGENT CNFL Comment: ----REFERENCE VALUE---- Desirable: <100 mg/dL Above Desirable: 100-129 mg/dL Borderline High: 130-159 mg/dL High: 160-189 mg/dL Very High: >=190 mg/dL ----ADDITIONAL INFORMATION---- LDL cholesterol calculated using the Munroe/NIH equation. Cholesterol, HDL 45(L) >=50 mg/dL 04/02/19 12:46 PM BORDER PATROL AGENT CNFL Cholesterol, Non-HDL, Calculated 219(H) mg/dL 04/02/2023 12:46 PM BORDER PATROL AGENT CNFL Comment: ----REFERENCE VALUE---- Desirable: <130 mg/dL Above Desirable: 130-159 mg/dL Borderline High: 160-189 mg/dL High: 190-219 mg/dL Very High: > or =220 mg/dL Fasting (8 HR or more) No 04/02/2023 12:27 PM BORDER PATROL AGENT CNFL Blood (Blood, Venous) 04/02/2023 12:26 PM BORDER PATROL AGENT 04/02/2023 12:27 PM BORDER PATROL AGENT us Debi Wilcox M.D. LAB BLOOD ADD-ON Final Re sult [facility] [address] [place] [address], [facility] CNFL [facility] in [address] [address] * COLONOSCOPY (01/29/2022 2:50 PM BORDER PATROL AGENT) Narrative Procedure Note Desmond Humphreys M.D. - 01/29/2022 2:50 PM CST [facility] [place] [facility] Patient Name: Gabriela Carlisle Procedure Date: 01/29/2022 2:50 PM Date of : 1955 Age: 66 Gender: Female Procedure: Colonoscopy Providers: Debi Upton (Ordering Provider) Referring Provider: Debi Wilcox Pre-op Diagnoses: Screening for colorectal malignant [...] the bowel preparation was evaluatedusing the BBPS ([place] Bowel Preparation Scale) with scores of: Right [...] to HCV PCR, S (02/05/2017 7:17 AM BORDER PATROL AGENT) HCV Ab Screen, S Nonreactive Nonreactive 02/06/2017 7:28 AM BORDER PATROL AGENT [facility] Blood (Blood, Venous) 02/05/2017 7:17 AM BORDER PATROL AGENT 02/05/2017 3:35 PM BORDER PATROL AGENT Narrative [facility] - 02/06/2017 7:28 AM BORDER PATROL AGENT Specimen Information: Specimen ID: [id number] Specimen Type: Blood Specimen Collection Start Date: 02/05/2017 ??7:17 AM Specimen Received Date: 02/05/2017 ??3:35 PM Specimen ID: [id number] Specimen Type: Blood Specimen Collection Start Date: 02/05/2017 ??7:17 AM Specimen Received Date: 02/05/2017 ??3:35 PM us Debi Wilcox M.D. LAB MICROBIOLOGY - BLOOD ORDERABLES Final Result [facility] [address] [place] [address], [facility] from Last 3 Months or Most Recently Relevant to Health [place] [address] [employer] MEDICARE Advance Directives For more information, please contact: [phone] * Full Code (Latest Code Status on [...] Answer Comments Full Code: Discussed Care Teams Chief Medical Officer Relationship Specialty Start Date End Date Debi Wilcox M.D. [address] [place] [phone] PCP - General Internal Medicine 10/01/18
--- OUTSIDE RECORDS SUMMARY | 2023-11-28 12:05 | XMS_ITS | Encounter Summary ---
Author Organization [facility] Address [address] [place] [address] Care Team Providers Care Golf Tournament Consultant Name Role Phone Debi Wilcox M.D. Primary Care Provider [phone] Reason for Visit * Reason Comments Pain * Outpatient (Routine) - Closed Specialty Diagnoses / Procedures Referred By Ness graves Referred To Contact Diagnoses Pain Foot Right Tracee Jacinto, CR[address]amboPR[address] [place] [address] Phone: tel: fax: [facility] Region Referral ID Status Reason Start Date Expiration Date Visits Re quested Visits Authorized [id number] Closed 08/01/2023 01/30/2025 1 1 Encounter Details Date Type Department Care Team (Latest Contact Info) Description 11/18/2023 8:30 AM CDT Comprehensive Visit Department of Orthopedic Surgery in [address] [phone] Nena Calderon D.P.M. [address] [place] [phone] Arthritis Foot (Primary Dx); Pain Foot Right Discharge Disposition: Home or Self Care Social History Tobacco Use Types Packs/Day Years Used Date Smoking Tobacco: Never Passive Smoke Exposure: Never Smokeless Tobacco: Never Alcohol Use Standard Drinks/Week Comments No 0 (1 standard drink = 0.6 oz pur e alcohol) [facility] Utilities Answer Date Recorded In the [...] and Family Twice a week 11/06/2018 Attends Alevism Services More than 4 times per year [...] Answer Date Recorded PHQ-2 Score 0 03/29/2023 [facility] - Occupational [...] Date Recorded Dental: Regular Dentist Yes 04/04/19 24 Employment Answer Date Recorded 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 I have a [facility] [address] to live 04/04/2023 Education Answer Date Recorded What is the highest level of school you have completed or the highest degree you have received? 12th grade 11/06/2018 Comments No Sex and Gender Information Value Date Recorded Sex Assigned at Female 02/14/2018 7:06 AM [employer] SEWING MACHINE OPERATOR Legal Sex Female 6:32 AM [employer] SEW[employer] MACHINE OPERATOR Gender Identity Female 02/14/2018 7:06 AM [employer] SEWING MACHINE OPERATOR Sexual Orientation Straight 02/14/2018 7: 06 AM [employer] SEW[employer] MACHINE OPERATOR documented as of this encounter Progress Notes * Nena Calderon D.PRamboMRambo - 11/18/2023 8:30 AM CDT SUBJECTIVE CHIEF COMPLAINT / REASON FOR VISIT Chief Complaint Patient presents with Right Foot - Pain HISTORY OF PRESENT ILLNESS Gabriela Carlisle is a 68 y.o. female who presents for evaluation of right dorsal midfoot pain that has been going on for several months initial presentation back in the summer with x-rays being done inJune at an appointment with her primary provider. She also had lower extremity ultrasound for ankleswelling. Patient describes the onset as subtle, with no history of injury. She typically is barefoot at home. Denies any redness but does endorse significant swelling to the point where she could not wear her shoes. She states pain was not present at rest but mostly present with walking. She does have a history of plantar fasciitis and states that this pain is definitely different and on the dorsal aspect of her foot versus plantarly. The following portions were reviewed and updated as appropriate: Allergies, medications, medical history, surgical history, family history, social history. and problem list per the electronic health record tab dated 11/18/2023. REVIEW OF SYSTEMS: Hepatic - negative, Constitutional - negative, Integumentary - negative, GI - negative, Musculoskeletal - see HPI OBJECTIVE PHYSICAL EXAMINATION Neurovascular status intact to the right foot. Right foot demonstrates a pes planus exaggerated with weight-bearing more notable on the right than the left. No signs of PT tendon dysfunction. No dorsal midfoot exostosis is noted but the area that was the most painful for was the tarsometatarsal joint. Currently no signs of acute inflammation such as erythema edema, or ecchymosis. DIAGNOSTICS LABORATORY / RADIOLOGY: X-rays taken 07/22/2023 outside location were independently reviewed demonstrating tarsometatarsal joint arthritis with a plantar calcaneal spur. ASSESSMENT / PLAN #1 Pain Foot Right #2 Arthritis Foot PLAN Reviewed clinical and radiographic findings. Patient was fitted with a pair of 1st step orthotics for use in her shoe gear and instructed to wear these at all times avoiding going without even at home. We did discuss possibility of future cortisone injection if she should have a flare-up again in the future. Patient understanding and happy with this plan and will follow up again p.r.n.. documented in this encounter Plan of Treatment Upcoming Encounters Date Type Department Care Team (Late st Contact Info) Description 12/13/2023 7:20 AM CDT Appointment Department of Laboratory Medicine in [address] [phone] Debi Wilcox M.D. [address] [place] [phone] 03/09/2024 10:50 AM [employer] SEWING MACHINE OPERATOR Appointment Department of Laboratory Medicine in [address] [phone] Debi Wilcox M.D. [address] [place] [phone] 03/09/2024 11:00 AM [employer] SEW[employer] MACHINE OPERATOR Appointment Department of Radiology in [address] [phone] Debi Wilcox M.D. [address] [place] [phone] 03/09/2024 1:00 PM [employer] SEW[employer] MACHINE OPERATOR Office Visit Department of Internal Medicine in [address] [phone] Debi Wilcox M.D. [address] [place] [phone] documented as of this encounter Visit Diagnoses Diagnosis Arthritis Foot- Primary Pain Foot Right documented in this encounter Additional Health Concerns Assessment Noted Time PHQ-9 Depression Total Score: 4 11/13/19 19 7:39 AM CDT documented as of this encounter Care Teams Golf Tournament Consultant Relationship Specialty Start Date End Date Debi Wilcox M.D. [address] [place] [phone] PCP - General Internal Medicine 10/01/18 documented as of this encounter
--- OUTSIDE RECORDS SUMMARY | 2023-11-28 12:06 | XMS_ITS | Encounter Summary ---
Author Organization [facility] Address [address] [place] [address] Care Team Providers Care School Bus Monitor Name Role Phone Debi Wilcox M.D. Primary Care Provider [phone] Reason for Referral * MRI/CAT/PET Scan (Routine) - Closed Specialty Diagnoses / Procedures Referred By Contac t Referred To Contact Radiology Diagnoses Nodule Pulmonary Solitary Procedures CT Chest without IV Contrast Debi Wilcox M.D. [address] [place] [address] Phone: tel: fax: [facility] Referral ID Status Reason Start Date Expiration Date Visits Re quested Visits Authorized [id number] Closed 09/12/2023 09/11/2024 1 1 * Outpatient (Routine) - Authorized Specialty Diagnoses / Procedures Referred By Contac t Referred To Contact [facility] Debi Wilcox M.D. [address] [place] [address] Phone: tel: fax: [facility] Region Referral ID Status Reason Start Date Expiration Date V isits Requested Visits Authorized [id number] Authorized 09/12/2023 03/13/2025 1 1 * Outpatient (Routine) - Authorized Specialty Diagnoses / Procedures Referred By Contac t Referred To Contact Diagnoses Stenosis Carotid Artery Left Procedures US Carotid Bilateral Debi Wilcox M.D. [address] [place] [address] Phone: tel: fax: [facility] Region Referral ID Status Reason Start Date Expiration Date V isits Requested Visits Authorized [id number] Authorized 09/12/2023 09/11/2024 1 1 * Outpatient (Routine) - Closed Specialty Diagnoses / Procedures Referred By Arnoldoac t Referred To Contact Diagnoses Screening Mammogram Breast Cancer Procedures BI Breast Screening Bilateral with Tomosynthesis Debi Wilcox M.D. [address] [place] [address] Phone: tel: fax: [facility] Region Referral ID Status Reason Start Date Expiration Date Visits Re quested Visits Authorized [id number] Closed 09/12/2023 09/11/2024 1 1 Reason for Visit * Reason Comments Follow-up Labs done yesterday * Outpatient (Routine) - Closed Specialty Diagnoses / Procedures Referred By Contac t Referred To Contact [facility] Debi Wilcox M.D. [address] [place] [address] Phone: tel: fax: [facility] Region Referral ID Status Reason Start Date Expiration Date Visits Re quested Visits Authorized [id number] Closed 04/04/2023 10/03/2024 1 1 Encounter Details Date Type Department Care Team (Late st Contact Info) Description 09/12/2023 10:20 AM CDT Office Visit Department of Internal Medicine in [place], [place] [address] [place] [address] Debi Wilcox M.D. [address] [place] [address] Cardiomyopathy (HCC) (Primary Dx); Deficiency Vitamin D; Screening Mammogram Breast Cancer; Gammopathy Monoclonal Nonspecific; Osteopenia; Fibromyalgia; Stenosis Carotid Artery Left; Fatigue; Edema; Hyperlipidemia; Nodule Pulmonary; Gastro-Esophageal Reflux Disease With Esophagitis Without Bleeding; Nodule Pulmonary Solitary Discharge Disposition: Home or Self Care Social History Tobacco Use Types Packs/Day Years Used Date Smoking Tobacco: Never Passive Smoke Exposure: Never Smokeless Tobacco: Never Tobacco Cessation:Counseling Given: Not Answered Alcohol Use Standard Drinks/Week Comments No 0 (1 standard drink = 0.6 oz pur e alcohol) [facility] [employer] Answer Date Recorded In the past 12 months has PayPal, gas, oil, or water [employer] threatened to shut off services in your [...] and Family Twice a week 11/06/2018 Attends [employer] Services More than 4 times per year [...] Answer Date Recorded PHQ-2 Score 0 03/29/2023 [facility] - Occupational Stress [...] money to buy more. Never true 04/04/19 Within the past 12 months, t he [...] your living situation today? I have a [facility] place to live 04/04/2023 Education Answer Date Recorded What is the highest level of school you have completed or the highest degree you have received? 12th grade 11/06/2018 Comments No Sex and Gender Information Value Date Recorded Sex Assigned at Female 02/14/2018 7:06 AM BELL CAPTAIN Legal Sex Female 6:32 AM BELL CAPTAIN Gender Identity Female 02/14/2018 7:06 AM BELL CAPTAIN Sexual Orientation Straight 02/14/2018 7: 06 AM BELL CAPTAIN documented as of this encounter Last Filed Vital Signs Vital Sign Reading Time Taken Comments Blood Pressure 112/74 09/12/2023 9:53 AM CDT Pulse 57 09/12/2023 9:53 AM CDT Temperature 36.3 ??C (97.3 ??F) 09/12/2023 9:53 AM CD T Respiratory Rate - - Oxygen Saturation - - Inhaled Oxygen Concentration - - Weight 111 kg (244 lb 4.3 oz) 09/12/2023 9:53 AM CDT Height - - Body Mass Index 41.93 05/22/2023 9:03 AM CDT documented in this encounter Patient Instructions * Patient Instructions* Debi Wilcox M.D. - 09/12/2023 10:20 AM CDT PLEASE STOP AT THE SCHEDULING DESK TO ARRANGE THE FOLLOWIN. Lab work in 3 months to recheck Vitamin D and folate levels. (Liver tests, magnesium will be added to labs from yesterday) 2. Recheck with Dr Wilcox in 6 months or MAR 2024 3. If the Duloxetine does not work or side effects - come back sooner. 4. Labs prior to seeing DR Wilcox in MAR 2024 5. Carotid Ultrasound in MAR 2024 is needed too. 6. Please go to lab and provide urine sample today 7. Chest CT to evaluate the lung nodule within 3 months. OTHER RECOMMENDATIONS: To treat your low vitamin D- 1. Take a loading dose of vit D of 50,000 units ONCE per WEEK. Do this for a total of 8 weeks. 2. After the loading regimen described above has been completed, Take vitamin D 1000 units ONCE every DAY. Do this every day thereafter. Prescriptions for the two different vitamin D prescriptions have been sent to your pharmacy. documented in this encounter Progress Notes * Debi Wilcxo M.D. - 09/12/2023 10:20 AM CDT SUBJECTIVE CHIEF COMPLAINT / REASON FOR VISIT Gabriela Carlisle is a 68 y.o. female who presents for evaluation of Follow-up (Labs done yesterday). HISTORY OF PRESENT ILLNESS She has longstanding cardiomyopathy. She is not particularly active. She can do stairs, no change in symptoms. She is afraid to walk outside. Will walk across parking lot. Discussed daily walk - inside or outside. She is achy and in pain all over, hips and knees, but now the right ribs are bothering her. She also long buttock pain or by the outside of the hip area. Lowe back pain. She has achiness in hands but rest of body is in pain. She has trouble sleeping due to this. NO joint redness or swelling. Seems pain in bones more than muscles. She is going to fibromyalgia clinic Has had lower vit D - was taking drops as told bad absorption. She does have some dietary restrictions - avoid dairy, does not tolerate almonds so no almond milk. Pain control regimen Tylenol 2 in AM, 1 Excedrin migraine too - she takes 1750 mg tylenol 2 times per day. Discussed not taking more than 4 g tylenol per day. Also takes liquid Advil - no stomach upset if just takes once daily. Otherwise NSAIDS bother her stomach. Has tried gabapentin and that did not work. She does have MGUS - reviewed. Fibro diagnosis, has been to clinic, other specialists. She sees specialist [facility] and takes hydroxyzine 25 mg QHS for interstitial cystitis (offlabel use) - has not had issues for this since. Prior to this - recurrent dysuria. Uses clobetasol for vaginal atrophy. PRN when severe - barely using. Does not want the estrogen cream. She saw Oleg Martin NP in [place] =- had been in [facility] in past in [place]. She was having some foot/ankle pain, swollen ankle, had x-rays referred to podiatry and still waiting to getting in for that. Cholesterol high, reviewed. On Zetia and statin. Does not do vaccines - allergic, severe reactions in past, requiring EPI - thus does not want any. Not interested in seeing ALLERGY to re-discuss. He has pulsatile tinnitus in left ear. Has been there 2-3 months. No ringing - swooshing sound in left ear bothersome. The following portions of the patient's history were reviewed and updated as appropriate: allergies, current medications, family history, medical history, social history, surgical history, and problem list. OBJECTIVE BP 112/74 (BP Location: Left arm, Patient Position: Sitting, Cuff Size: Regular) Pulse (!) 57 Temp 36.3 ??C (Temporal) Wt 111 kg BMI 41.93 kg/m?? PHYSICAL EXAM Physical Exam GENERAL: In general, patient is a well-nourished well-developed and appears in no acute distress Vitals charted as above HEENT: Normocephalic, atraumatic head. Pupils are equal round and reactive, sclerae white, conjunctivae pink, lids and lashes normal. Ears have normal-appearing auricle and tragus. Tympanic membranes visualized and without erythema. External nose normal in appearance. Mucous membranes are moist. Pharynx is without erythema or exudate. NECK: Supple, no lymphadenopathy or thyromegaly, no carotid bruits appreciated. HEART: Normal S1 and S2 [heart sounds], regular rhythm, [no murmur], no gallop or rub appreciated. LUNGS: [Clear to auscultation, normal respiratory effort] ABDOMEN: Soft, nontender, nondistended, bowel sounds normal. No rebound or guarding. MUSCULOSKELETAL: Normal muscle mass, no active joint inflammation SKIN: No rash, no jaundice Cbc abd Dif ok. May 2023 - CMP WNL, Vit D only 23 yesterday Iron and b12 ok TSH WNL yesterday DEXA 2022 osteopenia. Stress ECHO 2022 negative ASSESSMENT / PLAN #1 Cardiomyopathy (HCC) Overall patient seems to doing reasonably well. Stable exercise tolerance however she is not particularly active as she is limited by her chronic pain and fibromyalgia. We will try to address this asbelow. Metoprolol, Statin #2 Deficiency Vitamin D Vitamin-D level is low normal by the labs, preferably like to have this at least 30-60 and given her fibromyalgia having it closer to 40 would be desirable. We discussed this today as well as the option of a vitamin-D load and subsequent or replacement. She is agreeable. Prescriptions were sent to her pharmacy. We will recheck vitamin-D level in 3 months with adjustment in meds as clinically indic ated. #3 Chronic pain, fibromyalgia, fatigue Longstanding, chronic challenge for Gabriela. She has seen the fibromyalgia Clinic. She has also seen outside providers to help with the chronic pain. She is on low-dose hydroxyzine for an off-label use, treatment of interstitial cystitis. Since starting that she has had dramatically less dyspnea. She gets this from an outside provider and sees panda a regular basis. She is due for a mammogram otherwise up-to-date on routine cancer screens to ensure we are not missing any obvious malignancies. Treating vitamin-D deficiency as above. If her symptoms are not significantly improved after the vitamin-D load, we discussed the option ofmedication for chronic pain, primarily with an indication for fibromyalgia treatment. She has tried gabapentin in the past and did not tolerate it at all. Discussed Cymbalta or duloxetine and she is agreeable to that if she has ongoing discomfort following the vitamin-D load. Prescription sent to pharmacy. I want to see her back in 6 months for recheck. #4 Gammopathy Monoclonal Nonspecific Periodic lab surveillance. Currently no evidence of CRAB criteria. Will follow. #5 Osteopenia She does not consume dairy products and does not tolerate almond milk. She will attempt to get sources of calcium in her diet otherwise. We did discuss the use of Tums and then we are covering her vitamin-D need with the oral supplement as above. #6 Stenosis Carotid Artery Left Plan for follow-up ultrasound in April 02, 2024 to assess for any interval change. Periodic surveillance by imaging and or symptoms in the future. #7 Edema No evidence of heart failure, liver failure, kidney failure. I do suspect a component of venous insufficiency. Avoiding prolonged standing, keeping the legs elevated in the use of compression stockings would help with this. However today I am also going to check a urinalysis to ensure that there was not any excess proteinin the urine that would be suggestive of nephrotic syndrome cause for edema. #8 Nodule Pulmonary, single. Low risk, discussed option of repeating CT for surveillance and ensure no change., repeat CT to ensure nodule stable for surveillance. If it is stable at this point, she will have completed the 2 year surveillance and no further imaging would be needed. #9 Gastro-Esophageal Reflux Disease With Esophagitis Without Bleeding Remains on PPI. NOTE: Does not do vaccines - allergic, severe reactions in past, requiring EPI - thus does not want any. Not interested in seeing ALLERGY to re-discuss. Mammogram ordered Otherwise up to date on routine screening for age and gender. Debi Wilcox M.D. documented in this encounter Plan of Treatment Upcoming Encounters Date Type Department Care Team (Late st Contact Info) Description 12/13/2023 7:20 AM CDT Appointment Department of Laboratory Medicine in [address] [address] Debi Wilcox M.D. [address] [place] [phone] 03/09/2024 10:50 AM BELL CAPTAIN Appointment Department of Laboratory Medicine in [address] [phone] Debi Wilcox M.D. [address] [place] [phone] 03/09/2024 11:00 AM BELL CAPTAIN Appointment Department of Radiology in [address] [phone] Debi Wilcox M.D. [address] [place] [phone] 03/09/2024 1:00 PM BELL CAPTAIN Office Visit Department of Internal Medicine in [address] [phone] Debi Wilcox M.D. [address] [place] [phone] Scheduled Orders Name Type Priority Associated Diagnoses Orde r Schedule Vitamin D, Immunoassay, Total, Serum Lab Routine Deficiency Vitamin D Expected: 12/13/2023 (Approximate), Expires: 09/11/2024 Folate Lab Routine Cardiomyopathy (HCC) Deficiency Vitamin D Screening Mammogram Breast Cancer Gammopathy Monoclonal Nonspecific Osteopenia Fibromyalgia Fatigue Expected: 12/13/2023, Expires: 12/12/2024 Carotid Bilateral Imaging RAD - Routine (most inpatients and all outpatients) Stenosis Carotid Artery Left Expected: 03/14/2024, Expires: 09/11/2024 Basic Metabolic Panel Lab Routine Cardiomyopathy (HCC) Gammopathy Monoclonal Nonspecific Fibromyalgia Fatigue Expected: 03/14/2024 (Approximate), Expires: 08/11/2024 CBC with Differential, Blood Lab Routine Cardiomyopathy (HCC) Gammopathy Monoclonal Nonspecific Fibromyalgia Fatigue Expected: 03/14/2024 (Approximate), Expires: 08/11/2024 Vitamin D, Immunoassay, Total, Serum Lab Routine Cardiomyopathy (HCC) Deficiency Vitamin D Osteopenia Fibromyalgia Fatigue Expected: 03/14/2024 (Approximate), Expires: 08/11/2024 ALT (Alanine Aminotransferase) Lab Routine Cardiomyopathy (HCC) Fibromyalgia Fatigue Expected: 03/14/2024 (Approximate), Expires: 08/11/2024 Lipid Panel Lab Routine Cardiomyopathy (HCC) Gammopathy Monoclonal Nonspecific Fibromyalgia Stenosis Carotid Artery Left Fatigue Hyperlipidemia Expected: 03/14/2024 (Approximate), Expires: 08/11/2024 Electrophoresis, Protein Lab Routine Cardiomyopathy (HCC) Gammopathy Monoclonal Nonspecific Fibromyalgia Fatigue Expected: 03/14/2024 (Approximate), Expires: 08/11/2024 Scheduled Referrals Name Type Priority Associated Diagnoses Orde r Schedule [facility] office visit (clinic) Outpatient Referral Routine Expected: 03/14/2024 (Approximate), Expires: 08/11/2024 documented as of this encounter Procedures Procedure Name Priority Date/Time Associated Diagnosis Comments HEPATIC FUNCTION PANEL, S Routine 09/11/2023 8:56 AM CDT Cardiomyopathy (HCC) Deficiency Vitamin D Screening Mammogram Breast Cancer Gammopathy Monoclonal Nonspecific Osteopenia Fibromyalgia Fatigue Edema MAGNESIUM, S Routine 09/11/2023 8:56 AM CDT Cardiomyopathy (HCC) Deficiency Vitamin D Screening Mammogram Breast Cancer Gammopathy Monoclonal Nonspecific Osteopenia Fibromyalgia Fatigue Edema documented in this encounter Results * BI Breast Screening Bilateral with Tomosynthesis [...] ASSESSMENT: BI-RADS: 1: Negative. Debi Wilcox M.D. [facility] BI PROCEDURES Final R esult * CT Chest without IV Contrast (09/26/2023 [...] 8.0 09/12/2023 12:03 PM CDT [facility] Specific Roggen 1.024 1.001 - 1.035 09/12/2023 12:03 PM [...] M.D. LAB URINE ORDERABLES Shefali salmon Result Performing Organization Address City/State/[facility] Co de Phone Number [facility] [address] [place] [address], [facility] [place] [address] [place] [phone] * Hepatic Function Panel (09/11/2023 8:56 AM [...] M.D. LAB BLOOD ADD-ON Final Re sult [facility] [address] [place] [address], [facility] [place] [address] [place] [phone] * Magnesium (09/11/2023 8:56 AM CDT) Magnesium, P 2.0 1.7 - 2.3 mg/dL 09/12/2023 12:28 PM CDT [facility] Blood (Blood, Venous) 09/11/2023 8:56 AM CDT 09/12/2023 11:48 AM CDT us Debi Wilcox M.D. LAB BLOOD ADD-ON Final Re sult Performing Organization Address City/[facility] Co de Phone Number [facility] [address] [place] [address], [facility] [place] [address] [place] [phone] documented in this encounter Visit Diagnoses Diagnosis Cardiomyopathy (HCC)- Primary Deficiency Vitamin D Screening Mammogram Breast Cancer Gammopathy Monoclonal Nonspecific Osteopenia Fibromyalgia Stenosis Carotid Artery Left Fatigue Edema Hyperlipidemia Nodule Pulmonary Gastro-Esophageal Reflux Disease With Esophagitis Without Bleeding Nodule Pulmonary Solitary Nodule Pulmonary Solitary Screening Mammogram Breast Cancer documented in this encounter Additional Health Concerns Assessment Noted Time PHQ-9 Depression Total Score: 4 11/13/19 19 7:39 AM CDT documented as of this encounter Care Teams School Bus Monitor Relationship Specialty Start Date End Date Debi Wilcox M.D. [address] [place] [phone] PCP - General Internal Medicine 10/01/18 documented as of this encounter
--- OUTSIDE RECORDS SUMMARY | 2023-11-28 12:06 | XMS_ITS | Encounter Summary ---
Author Organization [facility] Address [address] [place] [address] Care Team Providers Care Dish Person Name Role Phone Debi Wilcox M.D. Primary Care Provider [phone] Encounter Details Date Type Department Care Team (Latest Contact Info) Description 09/11/2023 8:35 AM CDT - 09/11/2023 11:59 PM T Hospital Encounter Department of Laboratory Medicine in [address] [phone] Debi Wilcox M.D. [address] [place] [phone] Cardiomyopathy (HCC); Osteopenia; Fatigue; Fibromyalgia; Gastro-Esophageal Reflux Disease With Esophagitis Without Bleeding; Deficiency Vitamin D; Goiter Multinodular Nontoxic; Gammopathy Monoclonal Nonspecific; Other Disorders Of Iron Metabolism Discharge Disposition: Home or Self Care Social History Tobacco Use Types Packs/Day Years Used Date Smoking Tobacco: Never Passive Smoke Exposure: Never Smokeless Tobacco: Never Alcohol Use Standard Drinks/Week Comments No 0 (1 standard drink = 0.6 oz pur e alcohol) [facility] Utilities Answer Date Recorded In the past 12 months has e electric, gas, oil, or water company [...] and Family Twice a week 11/06/2018 Attends [employer] Services More than 4 times per year [...] Date Recorded PHQ-2 Score 0 03/29/2023 [facility] - Occupational [...] living situation today? I have a [facility] place to live 04/04/2023 Education Answer Date Recorded What is the highest level of school you have completed or the highest degree you have received? 12th grade 11/06/2018 Comments No Sex and Gender Information Value Date Recorded Sex Assigned at Female 02/14/2018 7:06 AM IMPORTER EXPORTER Legal Sex Female 6:32 AM IMPORTER EXPORTER Gender Identity Female 02/14/2018 7:06 AM IMPORTER EXPORTER Sexual Orientation Straight 02/14/2018 7: 06 AM IMPORTER EXPORTER documented as of this encounter Medications at Time of Discharge acetaminophen (TYLENOL EXTRA STRENGTH) 500 mg tablet Take 2 tablets (1,000 mg total) by mouth every 6 (six) hours as needed for pain. 10/09/2018 atorvastatin (LIPITOR) 40 mg tablet Take 1 tablet (40 mg total) by mouth 2 (two) times a week. Twice a week 8 tablet 11 01/14/2023 azelastine (ASTELIN) 137 mcg/spray (0.1 %) nasal spray Administer 1 spray into each nostril 2 (two) times a day. Use in each nostril as directed 30 mL 12 04/04/2023 clobetasoL (TEMOVATE) 0.05 % cream as needed. [...] crush or chew. 45 tablet 3 07/05/2023 5 cholecalciferol (VITAMIN D3) 10 mcg/mL (400 unit/mL) drops 400 Units. Takes 6 drops/ a couple times a week 4 fluticasone propionate (FLONASE) 50 mcg/actuation nasal sprayIndications :Sinusitis Acute Maxillary Administer 2 sprays into each nostril daily as needed for rhinitis. 18 g 3 03/15/2021 4 documented as of this encounter Plan of Treatment Upcoming Encounters Date Type Department Care Team (Late st Contact Info) Description 12/13/2023 7:20 AM CDT Appointment Department of Laboratory Medicine in [address] [phone] Debi Wilcox M.D. [address] [place] [phone] 03/09/2024 10:50 AM IMPORTER EXPORTER Appointment Department of Laboratory Medicine in [address] [phone] Debi Wilcox M.D. [address] [place] [phone] 03/09/2024 11:00 AM IMPORTER EXPORTER Appointment Department of Radiology in [address] [phone] Debi Wilcox M.D. [address] [place] [phone] 03/09/2024 1:00 PM IMPORTER EXPORTER Office Visit Department of Internal Medicine in [address] [phone] Debi Wilcox M.D. [address] [place] [phone] documented as of this encounter Procedures Procedure Name Priority Date/Time Associated Diagnosis Comments CBC WITH DIFFERENTIAL, B Routine 09/11/2023 8:59 AM CDT Cardiomyopathy (HCC) Osteopenia Gastro-Esophageal Reflux Disease With Esophagitis Without Bleeding Fatigue Fibromyalgia THYROID-STIMULATIN G HORMONE-SENSITIVE (S-TSH) Routine 09/11/2023 8:59 AM CDT Cardiomyopathy (HCC) Goiter Multinodular Nontoxic Fatigue Fibromyalgia BASIC METABOLIC PANEL, S/P Routine 09/11/2023 8:59 AM CDT Cardiomyopathy (HCC) Osteopenia Fatigue Fibromyalgia VITAMIN D, IMMUNOASSAY, TOTAL, S Routine 09/11/2023 8:58 AM CDT Deficiency Vitamin D Fatigue Fibromyalgia IRON AND TOT IRON-BINDING CAPACITY, S/P Routine 09/11/2023 8:58 AM CDT Fatigue Fibromyalgia Other Disorders Of Iron Metabolism ELECTROPHORESIS, PROTEIN, S Routine 09/11/2023 8:58 AM CDT Gammopathy Monoclonal Nonspecific Fatigue Fibromyalgia VITAMIN B12 ASSAY, S Routine 09/11/2023 8:58 AM CDT Fatigue Fibromyalgia documented in this encounter Results * S-TSH (Thyroid-Stimulating Hormone - Sensitive) (09/11/2023 8:59 AM CDT) TSH, Sensitive 1.2 0.3 - 4.2 mIU/L 09/11/2023 9:30 AM CDT [facility] Blood (Blood, Venous) 09/11/2023 8:59 AM CDT 09/11/2023 9:00 AM CDT us Debi Wilcox M.D. LAB BLOOD ADD-ON Final Re sult [facility] [address] [place] [address], [facility] [place] [address] [place] [phone] * (ABNORMAL) CBC with Differential, Blood (09/11/2023 [...] ADD-ON Final Re sult Performing Organization Address City/[facility]/ZIP Co de Phone Number [facility] [address] [address], [facility] [place] [address] * (ABNORMAL) Basic Metabolic Panel (09/11/2023 8:59 [...] ADD-ON Final Re sult Performing Organization Address City/[facility]/ZIP Co de Phone Number [facility] [address] [place] [address], [facility] [place] [address] * Iron and Total Iron-Binding Capacity (09/11/2023 [...] LAB BLOOD ADD-ON Final Re sult [facility] [address] [place] [address], [facility] [place] [address] * Electrophoresis, Protein (09/11/2023 8:58 AM CDT) [...] AM CDT 09/11/2023 2:17 PM CDT Narrative [facility] - 09/13/2023 10:31 AM CDT Specimen Information: Specimen ID: [id number] Specimen Type: Blood Specimen Collection Start Date: 09/11/2023 ??8:58 AM Specimen Received Date: 09/11/2023 ??2:17 PM Specimen ID: [id number] Specimen Type: Blood Specimen Collection Start Date: 09/11/2023 ??8:59 AM Specimen Received Date: 09/11/2023 ??2:17 PM us Debi Wilcox M.D. LAB BLOOD ADD-ON Final Re sult [facility] [address] [place] [phone], [facility] ECLR [facility] in [address] [address] [address] [place] [phone] * Vitamin B12 Assay (09/11/2023 8:58 AM CDT) [facility] Vitamin B12 Assay, S [phone] - 1245 ng/L 09/11/2023 2:57 PM CDT ECLR Comment: Biotin has been identified by the systems support officer as a potential interfering substance. Higher concentrations [...] ADD-ON Final Re sult Performing Organization Address [facility] Co de Phone Number [facility] [address] [place] [address], [facility] ECLR [address] [address] * Vitamin D, Immunoassay, Total, Serum (09/11/2023 [...] ADD-ON Final Re sult Performing Organization Address [facility] Co de Phone Number [facility] [address] [place] [address], [facility] ECLR [address] [address] documented in this encounter Visit Diagnoses Diagnosis Cardiomyopathy (HCC) Osteopenia Fatigue Fibromyalgia Gastro-Esophageal Reflux Disease With Esophagitis Without Bleeding Deficiency Vitamin D 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 [address] [place] [address] PCP - General Internal Medicine 10/01/18 documented as of this encounter
--- OUTSIDE RECORDS SUMMARY | 2023-11-28 12:06 | XMS_ITS | Encounter Summary ---
Author Organization [facility] Address [address] [place] [address] Care Team Providers Care Inspector Name Role Phone Debi Wilcox M.D. Primary Care Provider [phone] [phone] Reason for Referral * Outpatient (Routine) - Closed Specialty Diagnoses / Procedures Referred By Ness graves Referred To Contact Diagnoses Screening Mammogram Breast Cancer Procedures BI Breast Screening Bilateral with Tomosynthesis Debi Wilcox M.D. [address] [place] [address] Phone: tel: fax: [facility] Referral ID Status Reason Start Date Expiration Date Visits Re quested Visits Authorized [id number] Closed 09/12/2023 09/11/2024 1 1 Reason for Visit * Outpatient (Routine) - Closed Specialty Diagnoses / Procedures Referred By Ness graves Referred To Contact Diagnoses Screening Mammogram Breast Cancer Procedures BI Breast Screening Bilateral with Tomosynthesis Debi Wilcox M.D. [address] [place] [address] Phone: tel: fax: [facility] Region Referral ID Status Reason Start Date Expiration Date Visits Re quested Visits Authorized [id number] Closed 09/12/2023 09/11/2024 1 1 Encounter Details Date Type Department Care Team (Latest Contact Info) Description 10/11/2023 12:06 PM CDT - 10/11/2023 11:59 PM CDT Hospital Encounter Department of Radiology in [place], [place] [address] [place] [phone] Debi Wilcox M.D. [address] [place] [phone] Screening Mammogram Breast Cancer Discharge Disposition: Home or Self Care Social History Tobacco Use Types Packs/Day Years Used Date Smoking Tobacco: Never Passive Smoke Exposure: Never Smokeless Tobacco: Never Alcohol Use Standard Drinks/Week Comments No 0 (1 standard drink = 0.6 oz pur e alcohol) [facility] Utilities Answer Date Recorded In the past 12 months has [employer], gas, oil, or water [employer] threatened to shut off services in your [...] and Family Twice a week 11/06/2018 Attends [employer] Services More than 4 times per year [...] Date Recorded PHQ-2 Score 0 03/29/2023 [facility] - Occupational [...] your living situation today? [facility] 04/04/2023 Education Answer Date Recorded What is the highest level of school you have completed or the highest degree you have received? 12th grade 11/06/2018 Comments No Sex and Gender Information Value Date Recorded Sex Assigned at Female 02/14/2018 7:06 AM INTRAMURAL DIRECTOR Legal Sex Female 6:32 AM INTRAMURAL DIRECTOR Gender Identity Female 02/14/2018 7:06 AM INTRAMURAL DIRECTOR Sexual Orientation Straight 02/14/2018 7: 06 AM INTRAMURAL DIRECTOR documented as of this encounter Medications at [...] chew. 45 tablet 3 07/05/2023 5 cholecalciferol (Vitamin D3) 1,250 mcg (50,000 Unit) capsule Take 1 capsule (50,000 Units total) by mouth once a week for 8 doses. 8 capsule 09/12/2023 4 DULoxetine (Cymbalta) [address] capsule Take 1 capsule (20 mg total) by mouth 2 (two) times a day. 180 capsule 3 09/12/2023 4 documented as of this encounter Plan of Treatment Upcoming Encounters Date Type Department Care Team (Late st Contact Info) Description 12/13/2023 7:20 AM CDT Appointment Department of Laboratory Medicine in [address] [phone] Debi Wilcox M.D. [address] [place] [phone] 03/09/2024 10:50 AM INTRAMURAL DIRECTOR Appointment Department of Laboratory Medicine in [address] [phone] Debi Wilcox M.D. [address] [place] [phone] 03/09/2024 11:00 AM INTRAMURAL DIRECTOR Appointment Department of Radiology in [address] [phone] Debi Wilcox M.D. [address] [place] [phone] 03/09/2024 1:00 PM INTRAMURAL DIRECTOR Office Visit Department of Internal Medicine in [address] [phone] Debi Wilcox M.D. [address] [place] [phone] documented as of this encounter Procedures Procedure Name Priority Date/Time Associated Diagnosis Comments BI BREAST SCREENING BILATERAL WITH TOMOSYNTHESIS RAD - Routine (most inpatients and all outpatients) 10/11/2023 12:29 PM CDT Screening Mammogram Breast Cancer documented in this encounter Results * BI [...] M.D. IMG BI PROCEDURES Final R esult documented in this encounter Visit Diagnoses Diagnosis Screening Mammogram Breast Cancer documented in this encounter Additional Health Concerns Assessment Noted Time PHQ-9 Depression Total Score: 4 11/13/19 19 7:39 AM CDT documented as of this encounter Care Teams Inspector Relationship Specialty Start Date End Date Debi Wilcox M.D. [address] [place] [phone] PCP - General Internal Medicine 10/01/18 documented as of this encounter
--- OUTSIDE RECORDS SUMMARY | 2023-11-28 12:06 | XMS_ITS | Encounter Summary ---
Author Organization [facility] Address [address] [place] [address] Care Team Providers Care Violent Crimes Detective Name Role Phone Debi Wilcox M.D. Primary Care Provider [phone] [phone] Reason for Referral * Outpatient (Routine) - Authorized Specialty Diagnoses / Procedures Referred By Ness graves Referred To Contact Diagnoses Screening Mammogram Breast Cancer Procedures BI Breast Screening Bilateral with Tomosynthesis Debi Wilcox M.D. [address] [place] [address] Phone: tel: fax: [facility] Region Referral ID Status Reason Start Date Expiration Date V isits Requested Visits Authorized [id number] Authorized 11/06/2023 11/05/2024 1 1 * MRI/CAT/PET Scan (Routine) - Closed Specialty Diagnoses / Procedures Referred By Ness graves Referred To Contact Radiology Diagnoses Pain Breast Mammographic Heterogeneous Density, Bilateral Breasts Procedures MR Breast Bilateral without and with IV Contrast ID MRI BREAST WOW CNTRST W/CAD Phill Hernandez, MPAS, P.A.-C., P.A. [address] [place] [address] Phone: tel: fax: [facility] Region Referral ID Status Reason Start Date Expiration Date Visits Re quested Visits Authorized [id number] Closed 10/22/2023 10/21/2024 1 1 Reason for Visit * Reason Comments Consult High risk breast exa m Encounter Details Date Type Department Care Team (Latest Contact Info) Description 10/22/2023 1:00 PM CDT Comprehensive Visit Department of General Surgery in [place], [place] [address] [place] [phone] Phill Hurley MPAS, P.A.Karla., P.A. [address] [place] [phone] Risk Assessment Cancer Breast (Primary Dx); Pain Breast; Mammographic Heterogeneous Density, Bilateral Breasts; Screening Mammogram Breast Cancer Discharge Disposition: Home or Self Care Social History Tobacco Use Types Packs/Day Years Used Date Smoking Tobacco: Never Passive Smoke Exposure: Never Smokeless Tobacco: Never Tobacco Cessation:Counseling Given: Not Answered Alcohol Use Standard Drinks/Week Comments No 0 (1 standard drink = 0.6 oz pur e alcohol) [facility] Utilities Answer Date Recorded In the past 12 months has [employer], gas, oil, or water [employer] threatened to shut off services in your [...] and Family Twice a week 11/06/2018 Attends Religion Services More than 4 times per year [...] Answer Date Recorded PHQ-2 Score 0 03/29/2023 [facility] - [...] your living situation today? I have a [facility] place to live 04/04/2023 Education Answer Date Recorded What is the highest level of school you have completed or the highest degree you have received? 12th grade 11/06/2018 Comments No Sex and Gender Information Value Date Recorded Sex Assigned at Female 02/14/2018 7:06 AM SLIPPER MAKER Legal Sex Female 6:32 AM SLIPPER MAKER Gender Identity Female 02/14/2018 7:06 AM SLIPPER MAKER Sexual Orientation Straight 02/14/2018 7: 06 AM SLIPPER MAKER documented as of this encounter Last Filed Vital Signs Vital Sign Reading Time Taken Comments Blood Pressure 133/81 10/22/2023 1:02 PM CDT Pulse 60 10/22/2023 1:02 PM CDT Temperature 36.6 ??C (97.8 ??F) 10/22/2023 1:02 PM CD T Respiratory Rate - - Oxygen Saturation - - Inhaled Oxygen Concentration - - Weight - - Height - - Body Mass Index - - documented in this encounter Consult Notes * Phill Hurley, ÓSCAR, P.A.-C., P.A. - 10/22/2023 1:00 PM CDT GENERAL SURGERY CONSULTATION SUBJECTIVE REASON FOR CONSULT Evaluation of Consult (High risk breast exam). She was referred by Dr. Debi Wilcox MD, [facility]. HISTORY OF PRESENT ILLNESS Ms. Carlisle is a very pleasant 68 y.o. female who presents today for consultation regarding mastalgiasymptoms and recent breast imaging results. She notes that she has been experiencing left breast pain in 1 particular spot for much time; she reports this to be localized to the upper outer and outerbreast. She reports that the breast pain is constant in nature and describes the pain as an ???I know something is there?? ache. Pain is also appreciated upon palpation of the left upper outer and outer breast, which is where the pain is localized. She reports the symptoms are left-sided only. Sheis not having any pain in her right breast. She recently presented for screening mammography and was encouraged by the mammogram tech to follow-up for a consultation regarding the mastalgia symptoms and imaging findings, noting an asymmetry in the left upper outer breast, increasing density in the upper outer breast compared to the right side of the same location. She notes that her breasts feel very lumpy and bumpy in general and bilaterally. She has not noticed any changes in her self-exam. She does not endorse any skin changes of the breasts, such as erythema, induration, discolorations, skin thickening or dimpling. She denies any nipple discharge bilaterally. She denies any nipple inversion. Her past medical history is significant for cardiomyopathy, premature ventricular beats, left carotid artery stenosis, vitamin-D deficiency, GERD, irritable bowel syndrome, allergic rhinitis, monoclonal gammopathy, fibromyalgia, osteopenia, osteoarthritis, multinodular nontoxic goiter, hyperlipidemia, colon polyps. BREAST HEALTH HISTORY: Breast density: B Last screening mammogram: 10/11/2023 Past breast biopsies: Around the age of 31, she was being seen by a doorkeeper for either a benign breast cyst or a benign infected milk duct at the time. She may have had a needle aspiration procedure at that time. No other breast biopsies endorsed today. Past breast surgery: None. Menarche: 5th grade, she approximates likely age 11. Menopause: Experienced menopause in her late 50s. She notes that she had spotting every 3-4 months until the age of 61. In September of 2018, she underwent a hysterectomy and bilateral salpingo oophorectomy at the age of 63 following an atypical endometrial biopsy finding (A. Endometrium, biopsy: Scant superficial fragments of atrophic endometrium and benign endocervical glands. B. Cervix, biopsy: Superficial fragments of benign squamous epithelium and endocervical glands.) Final pathology following hysterectomy revealed: A. Endometrium, curettage: Fragments of benign polypoid endometrial tissue. B. Uterus and right and left fallopian tubes and ovaries, total hysterectomy and bilateral salpingo- oophorectomy: Complex atypical hyperplasia. Leiomyomas (1.6 cm in greatest dimension). Uterine serosal fibrous adhesions. Cervix and right and left ovaries and fallopian tubes are without significant pathologic change. G3, P3, T3, P0, A0, L3. Age at 1st parity: 22. history: Breast fed all of her children for about 5-6 months on average with each. Fertility medication use: None. OCPs: Notes she had taken OCPs in the past, for about 3 years in total throughout her lifetime. Shethen had a tubal ligation. She notes that she started OCPs in 1974 and did not take any OCPs prior to the year. HRT: She has not taken any oral hormone replacement therapy. She notes she was recently prescribed an estradiol cream due to vaginal dryness and interstitial cystitis. There was a recommendation to consider hydroxyzine as an additional management options for her symptoms.. Past radiation treatment to the chest: None. Exercise: Not addressed today Alcohol: No alcohol use reported in nursing questionnaire. BMI: 41.2 kg/m2 Smoking: Never. FAMILY HISTORY Breast cancer: None. Uterine cancer: None. Ovarian cancer: Maternal grandmother had some lower gynecologic female cancer and it was metastaticdisease at the time of diagnosis; she passed due to complications of this cancer. she reports that an additional great aunt may have had some form of female cancer. Colon cancer: None. Prostate cancer: None. Pancreatic cancer: None. Gastric cancer: She reports that her maternal grandmother's younger sister may have had gastric cancer. Melanoma: None. She reports a maternal aunt who had squamous cell carcinoma but there is no family history of melanoma related skin cancer. Patient's mother has a personal history of kidney cancer. REVIEW OF SYSTEMS A full 14 point review of systems was reviewed with the patient. Systems reviewed include: General,HENT, Eyes, Cardiovascular, Respiratory, Gastrointestinal, Genitourinary, Skin, Musculoskeletal, Endocrine, Hematologic, Neurologic, Psychiatric and Allergic. All pertinent items are listed in the His tory of Present Illness, Past Medical History and Past Surgical History. Patient also notes: Fatigue, wears glasses/contact lenses, dry eyes, abdominal pain, heartburn, frequent urination, breast pain, joint pain, arthritis, back pain, headaches, tingling sensation. Question seaman placed next to swelling of the feet, ankles were hands as well as next to excessive urination and thirst. The remainder of the review systems is negative. Past Medical History, Past Surgical History, Family History, Social History, Medications and Allergies were reviewed in the electronic medical record under their respective tabs and updated where necessary. OBJECTIVE PHYSICAL EXAMINATION Vitals: 10/22/23 1302 BP: 133/81 Pulse: 60 Temp: 36.6 ??C TempSrc: Temporal PainSc: 4 PainLoc: Breast Comment: Left GENERAL: Awake, alert, oriented, and in no acute distress. Sitting comfortably in examination room.Well-developed, well-nourished adult female. HEENT: Head atraumatic, normocephalic. Symmetrical facial features. External ears and nose appear normal. No palpable postauricular, preauricular, submandibular, submental or cervical lymphadenopathyappreciated. NECK: Supple. CARDIOVASCULAR: Heart regular rate and rhythm. Normal S1, S2. No murmurs, rubs, or gallops appreciated. RESPIRATORY: Normal respiratory effort. Lungs clear to auscultation bilaterally. No wheezes, crackles, or rales. No cough. ABDOMEN: Soft, nondistended, nontender to palpation. BREASTS: Breast exam is performed with freezer assistant Diane Zaman CMA. Upon visual inspection breasts are symmetrical and negative for dimpling, discoloration, and skin changes. Breasts move equally and freely when arms are raised overhead. Exam is negative for any palpable lymph nodes in the suprac lavicular, infraclavicular or axillary region. No masses, abnormal lumps, or nodules are palpated on exam and nipples are negative for discharge upon palpation. MUSCULOSKELETAL: Moves all extremities. SKIN: Warm and dry. No rashes or jaundice. NEUROLOGIC: Alert and oriented x 3. PSYCHIATRIC: Normal affect. Pleasant and cooperative. DIAGNOSTICS I have reviewed this patient's laboratory and diagnostic results. IMAGING: BI Breast Screening Bilateral with Tomosynthesis Result Date: 10/11/2023 EXAM: BI BREAST SCREENING BILATERAL WITH TOMOSYNTHESIS Current study was evaluated with a Computer Aided Detection (CAD) system. INDICATION: Screening mammogram. COMPARISON: Prior exam(s) were available and reviewed for comparison. DENSITY: b. There are scattered areas of fibroglandular density. FINDINGS: No mammographic findings of malignancy. Negative. RECOMMENDATION: Annual Screening Mammogram ASSESSMENT: BI-RADS: 1: Negative. CT Chest without IV Contrast Result Date: 09/26/2023 EXAM: CT CHEST WITHOUT IV CONTRAST [...] increase sensitivity for detection of pulmonary nodules. Stable likely benign sub-6 mm pulmonary nodules. ASSESSMENT / PLAN #1 Risk Assessment Cancer Breast #2 Pain Breast #3 Mammographic Heterogeneous Density, Bilateral Breasts Other orders - MR Breast Bilateral without and with IV Contrast; Future; Expected date: 10/22/2023 A 68 y.o.-year-old female with left breast mastalgia symptoms. PLANS: 1. Breast MRI for problem solving purposes. Will contact by phone or portal message with results once obtained. Gabriela has been dealing with breast pain in the upper outer left breast for some time. She was encouraged to seek consultation at her recent mammogram imaging as there was noted an asymmetric density noted in the left upper outer breast by the mammogram interactive video technician. She presents today for further evaluation. We reviewed the results of her recent mammogram, noting mammography images in QREADS. Typically in light of normal findings on clinical and imaging studies, patients do not need any additionalworkup or therapies for mastalgia symptoms however, given her symptoms and concerns brought forth today, we elect to pursue additional problem solving imaging with a breast MRI at this time. I will co ntact her by phone or portal message with those results once obtained. I reassured her that the presence of an associated breast cancer in a patient who presents with breast pain is extremely low ranging from 0.5% to 3.3% within the literature. Taken together women who present with mastalgia can bereasonably assured that their risk of breast cancer is similar to women without mastalgia in the presence of a normal examination. Again, we will continue her diagnostic workup with a supplemental problem solving breast MRI. I encouraged her to perform self-breast exams and notify myself or her primary care provider should any changes occur for prompt diagnostic evaluation, including but not limited to newly palpated lumps, skin changes or nipple discharge. She was agreeable with this plan. I answered any questions or concerns that she had and did provide her with some educational materials regarding our discussion today. ÓSCAR Henao P.A.-C., P.A. documented in this encounter Miscellaneous Notes * Addendum Note - Phill Hurley MPAS, P.A.-C., P.A. - 10/22/2023 1:00 PM CDTAddended by: PHILL HURLEY on: 11/06/2023 11:43 AM Modules accepted: Orders documented in this encounter Plan of Treatment Upcoming Encounters Date Type Department Care Team (Late st Contact Info) Description 12/13/2023 7:20 AM CDT Appointment Department of Laboratory Medicine in [address] [place] [phone] Debi Wilcox M.D. [address] [place] [phone] 03/09/2024 10:50 AM SLIPPER MAKER Appointment Department of Laboratory Medicine in [address] [phone] Debi Wilcox M.D. [address] [place] [phone] 03/09/2024 11:00 AM SLIPPER MAKER Appointment Department of Radiology in [address] [phone] Debi Wilcox M.D. [address] [place] [phone] 03/09/2024 1:00 PM SLIPPER MAKER Office Visit Department of Internal Medicine in [address] [phone] Debi Wilcox M.D. [address] [place] [phone] Scheduled Orders Name Type Priority Associated Diagnoses Order Schedule BI Breast Screening Bilateral with Tomosynthesis Imaging RAD - Routine (most inpatients and all outpatients) Screening Mammogram Breast Cancer Expected: 10/10/2024, Expires: 02/04/2025 documented as of this encounter Results * MR Breast Bilateral without and with [...] Annual screening mammogram. ASSESSMENT: BI-RADS: 1: Negative. us Phill Hurley [facility], P.A.-C., P.A. IM MRI PROCEDURES Final Result documented in this encounter Visit Diagnoses Diagnosis Risk Assessment Cancer Breast- Primary Pain Breast Mammographic Heterogeneous Density, Bilateral Breasts Screening Mammogram Breast Cancer Pain Breast Mammographic Heterogeneous Density, Bilateral Breasts documented in this encounter Additional Health Concerns Assessment Noted Time PHQ-9 Depression Total Score: 4 11/13/19 19 7:39 AM CDT documented as of this encounter Care Teams Violent Crimes Detective Relationship Specialty Start Date End Date Debi Wilcox M.D. [address] [place] [phone] PCP - General Internal Medicine 10/01/18 documented as of this encounter
--- OUTSIDE RECORDS SUMMARY | 2023-11-28 12:06 | XMS_ITS | Encounter Summary ---
Author Organization [facility] Address [address] [place] [address] Care Team Providers Care Cycle Counter Name Role Phone Debi Wilcox M.D. Primary Care Provider [phone] Reason for Visit * Outpatient (Routine) - Authorized Specialty Diagnoses / Procedures Referred By Ness graves Referred To Contact Diagnoses Beat Premature Ventricular Fatigue Pain Chest Procedures ECG Heart Rhythm Monitor (Holter) Eduardo Barclay M.D. [address] [place] [phone] Phone: tel: fax: [facility] Region Referral ID Status Reason Start Date Expiration Date V isits Requested Visits Authorized [id number] Authorized 07/05/2023 07/04/2024 1 1 Encounter Details Date Type Department Care Team (Latest Contact Info) Description 10/03/2023 2:00 PM CDT Ancillary Procedure Department of Cardiovascular Diseases in [address] [phone] Eduardo Barclay M.D. [address] [place] [phone] Beat Premature Ventricular; Fatigue; Pain Chest Discharge Disposition: Home or Self Care Social History Tobacco Use Types Packs/Day Years Used Date Smoking Tobacco: Never Passive Smoke Exposure: Never Smokeless Tobacco: Never Alcohol Use Standard Drinks/Week Comments No 0 (1 standard drink = 0.6 oz pur e alcohol) [facility] Utilities Answer Date Recorded In the [...] and Family Twice a week 11/06/2018 Attends Zoroastrianism Services More than 4 times per year [...] your living situation today? I have a [facility] place to live 04/04/2023 Education Answer Date Recorded What is the highest level of school you have completed or the highest degree you have received? 12th grade 11/06/2018 Comments No Sex and Gender Information Value Date Recorded Sex Assigned at Female 02/14/2018 7:06 AM IT SUPPORT ANALYST Legal Sex Female 6:32 AM IT SUPPORT ANALYST Gender Identity Female 02/14/2018 7:06 AM IT SUPPORT ANALYST Sexual Orientation Straight 02/14/2018 7: 06 AM IT SUPPORT ANALYST documented as of this encounter Nursing Notes * Maida aCntrell RRamboN. - 10/03/2023 2:00 PM CDT Patient came in today for MoMe placement. Patient instructed not to use any heated blankets or pads, no showers, bathing, or get the MoMe wet. Instructed on how to change MoMe batteries: batteries will be changed out in the AM and PM during the duration of the MoMe, and a new fully charged battery will be placed in the device before returning. The patient was able to show how to change batteries. Patient instructed where and how to return device, and will return MoMe in 24 hours. documented in this encounter Plan of Treatment Upcoming Encounters Date Type Department Care Team (Late st Contact Info) Description 12/13/2023 7:20 AM CDT Appointment Department of Laboratory Medicine in [address] [phone] Debi Wilcox M.D. [address] [place] [phone] 03/09/2024 10:50 AM IT SUPPORT ANALYST Appointment Department of Laboratory Medicine in [address] [phone] Debi Wilcox M.D. [address] [place] [phone] 03/09/2024 11:00 AM IT SUPPORT ANALYST Appointment Department of Radiology in [address] [phone] Debi Wilcox M.D. [address] [place] [phone] 03/09/2024 1:00 PM IT SUPPORT ANALYST Office Visit Department of Internal Medicine in [address] [phone] Debi Wilcox M.D. [address] [place] [phone] documented as of this encounter Procedures Procedure Name Priority Date/Time Associated Diagnosis Comments HOLTER MONITOR - IN CLINIC WIRE MACHINE OPERATOR Routine 10/04/2023 3:51 AM CDT Beat Premature Ventricular Fatigue Pain Chest documented in this encounter Results * HOLTER MONITOR - IN CLINIC WIRE MACHINE OPERATOR (10/04/2023 3:51 AM CDT) Min Heart Rate [...] Duration 0 duration INFOBION IC MOME AF [place] 0 percent INFOBIONIC MOME Symptom Count 0 count INFOBI ONIC MOME 10/03/2023 1:29 PM CDT Narrative MOI RAMIREZE - 10/11/2023 2:40 PM CDT 1. The [...] 1%. 4. No symptomatic events were noted. Glass Or Mirror Inspector: FRANCISCO Sierra / FRANCISCO Black Procedure Note [...] 1%. 4. No symptomatic events were noted. Glass Or Mirror Inspector: FRANCISCO Sierra / FRANCISCO Black Eduardo Barclay M.D. CV CARDIAC SERVICES PROCED URES Final Result MOI BARRIOS NA documented in this encounter Visit Diagnoses Diagnosis Beat Premature Ventricular Fatigue Pain Chest documented in this encounter Additional Health Concerns Assessment Noted Time PHQ-9 Depression Total Score: 4 11/13/19 19 7:39 AM CDT documented as of this encounter Care Teams Cycle Counter Relationship Specialty Start Date End Date JeriDebi velasquez M.D. [address] [place] [phone] PCP - General Internal Medicine 10/01/18 documented as of this encounter
--- OUTSIDE RECORDS SUMMARY | 2023-11-28 12:06 | XMS_ITS | Encounter Summary ---
Author Organization [facility] Address [address] [place] [address] Care Team Providers Care Sounding Device Operator Name Role Phone Debi Wilcox M.D. Primary Care Provider [phone] [phone] Reason for Visit * Reason Onset Date Comments Appt Request 10/11/2023 Encounter Details Date Type Department Care Team (Late st Contact Info) Description 10/11/2023 Clinical Communication Department of General Surgery in [place], [place] [address] [place] [phone] Caroline Hurley, MPAS, P.A.-C., P.A. [address] [place] [phone] Appt Request Social History Tobacco Use Types Packs/Day Years Used Date Smoking Tobacco: Never Passive Smoke Exposure: Never Smokeless Tobacco: Never Alcohol Use Standard Drinks/Week Comments No 0 (1 standard drink = 0.6 oz pur e alcohol) [facility] Utilities Answer Date Recorded In the past 12 months has [employer], gas, oil, or water [employer] threatened to shut off services in your [...] and Family Twice a week 11/06/2018 Attends Ten[employer]ism Services More than 4 times per year [...] your living situation today? I have a [facility] place to live 04/04/2023 Education Answer Date Recorded What is the highest level of school you have completed or the highest degree you have received? 12th grade 11/06/2018 Comments No Sex and Gender Information Value Date Recorded Sex Assigned at Female 02/14/2018 7:06 AM VEGETABLE FARMING SUPERVISOR Legal Sex Female 6:32 AM VEGETABLE FARMING SUPERVISOR Gender Identity Female 02/14/2018 7:06 AM VEGETABLE FARMING SUPERVISOR Sexual Orientation Straight 02/14/2018 7: 06 AM VEGETABLE FARMING SUPERVISOR documented as of this encounter Plan of Treatment Upcoming Encounters Date Type Department Care Team (Late st Contact Info) Description 12/13/2023 7:20 AM CDT Appointment Department of Laboratory Medicine in [address] [phone] Debi Wilcox M.D. [address] [place] [phone] 03/09/2024 10:50 AM VEGETABLE FARMING SUPERVISOR Appointment Department of Laboratory Medicine in [address] [phone] Debi Wilcox M.D. [address] [place] [phone] 03/09/2024 11:00 AM VEGETABLE FARMING SUPERVISOR Appointment Department of Radiology in [address] [phone] Debi Wilcox M.D. [address] [place] [phone] 03/09/2024 1:00 PM VEGETABLE FARMING SUPERVISOR Office Visit Department of Internal Medicine in [address] [phone] Debi Wilcox M.D. [address] [place] [phone] documented as of this encounter Visit Diagnoses Not on filedocumented in this encounter Additional Health Concerns Assessment Noted Time PHQ-9 Depression Total Score: 4 11/13/19 19 7:39 AM CDT documented as of this encounter Care Teams Sounding Device Operator Relationship Specialty Start Date End Date Debi Wilcox M.D. [address] [place] [phone] PCP - General Internal Medicine 10/01/18 documented as of this encounter
--- OUTSIDE RECORDS SUMMARY | 2023-11-28 12:06 | XMS_ITS | Encounter Summary ---
Author Organization [facility] Address [address] [place] [address] Care Team Providers Care Storehouse Clerk Name Role Phone Debi Wilcox M.D. Primary Care Provider +1 [phone] Reason for Referral * MRI/CAT/PET Scan (Routine) - Closed Specialty Diagnoses / Procedures Referred By Contac t Referred To Contact Radiology Diagnoses Pain Breast Mammographic Heterogeneous Density, Bilateral Breasts Procedures MR Breast Bilateral without and with IV Contrast PA MRI BREAST WOW CNTRST W/CAD Caroline Hernandez MPAS, P.A.-C[facility] P.A[facility] [address] [place] [address] Phone: tel: fax: [facility] Region Referral ID Status Reason Start Date Expiration Date Visits Re quested Visits Authorized [id number] Closed 10/22/2023 10/21/2024 1 1 Reason for Visit * MRI/CAT/PET Scan (Routine) - Closed Specialty Diagnoses / Procedures Referred By Contac t Referred To Contact Radiology Diagnoses Pain Breast Mammographic Heterogeneous Density, Bilateral Breasts Procedures MR Breast Bilateral without and with IV Contrast PA MRI BREAST WOW CNTRST W/CAD BILCaroline Zaragoza MPAS, P.A.-C., P.A. [address] [place] [address] Phone: tel: fax: [facility] Region Referral ID Status Reason Start Date Expiration Date Visits Re quested Visits Authorized [id number] Closed 10/22/2023 10/21/2024 1 1 Encounter Details Date Type Department Care Team (Latest Contact Info) Description 11/04/2023 1:57 PM CDT - 11/04/2023 11:59 PM CDT Hospital Encounter Department of Radiology in [place], [place] [address] [place] [address] Caroline Hurley MPAS, P.A.-C[facility] P.A[facility] [address] [place] [address] Pain Breast; Mammographic Heterogeneous Density, Bilateral Breasts Discharge Disposition: Home or Self Care Social History Tobacco Use Types Packs/Day Years Used Date Smoking Tobacco: Never Passive Smoke Exposure: Never Smokeless Tobacco: Never Alcohol Use Standard Drinks/Week Comments No 0 (1 standard drink = 0.6 oz pur e alcohol) [facility] Utilities Answer Date Recorded In the [...] and Family Twice a week 11/06/2018 Attends Denominational Services More than 4 times per year [...] Answer Date Recorded PHQ-2 Score 0 03/29/2023 [facility] - [...] Date Recorded Employment status Working with temporary [employer] 04/04/2023 Housing Stability Answer Date Recorded What is your living situation today? I have a [facility] place to live 04/04/2023 Education Answer Date Recorded What is the highest level of school you have completed or the highest degree you have received? 12th grade 11/06/2018 Comments No Sex and Gender Information Value Date Recorded Sex Assigned at Female 02/14/2018 7:06 AM BORING MACHINE OPERATOR HELPER Legal Sex Female 6:32 AM BORING MACHINE OPERATOR HELPER Gender Identity Female 02/14/2018 7:06 AM BORING MACHINE OPERATOR HELPER Sexual Orientation Straight 02/14/2018 7: 06 AM BORING MACHINE OPERATOR HELPER documented as of this encounter Medications at [...] or chew. 45 tablet 3 07/05/2023 5 documented as of this encounter Miscellaneous Notes * Result Encounter Note - Caroline Hurley MPAS, P.A.-C., P.A. - 11/06/2023 11:43 AM CDT I contacted Gabriela on Saturday, November 06, 2023 to discuss the recent breast MRI results. She wasable to be reached at the time of the call and was able to discuss things further with me. We notedtogether that the breast MRI imaging did not identify any changes of concern in either breast. In the area where some density is noted on her recent mammographic imaging and where her pain is locatedin the left breast, there were no changes of concern. There were no abnormal lymph node changes in either armpit or in the chest wall that was examined. This was a good and reassuring report. We discussed that in the setting of normal imaging and clinical findings, we can feel reassured that the breast pain isn't related to a sinister etiology. She should continue with her annual screening mammography with tomosynthesis, next due in late September 2024. We elect to follow up as needed moving forward and Gabriela was encouraged to reach out to me with any questions or concerns that arise regarding her breast health. I would be happy to reconnect with her if she has any changes in her breast pain symptoms, changes in her self-exam or for any clinical breast concern if it arises. She was acceptableand agreeable to this plan. documented in this encounter Plan of Treatment Upcoming Encounters Date Type Department Care Team (Late st Contact Info) Description 12/13/2023 7:20 AM CDT Appointment Department of Laboratory Medicine in [address] [phone] Debi Wilcox M.D. [address] [place] [phone] 03/09/2024 10:50 AM BORING MACHINE OPERATOR HELPER Appointment Department of Laboratory Medicine in [address] [phone] Debi Wilcox M.D. [address] [place] [phone] 03/09/2024 11:00 AM BORING MACHINE OPERATOR HELPER Appointment Department of Radiology in [address] [phone] Debi Wilcox M.D. [facility] [place] [address] 03/09/2024 1:00 PM BORING MACHINE OPERATOR HELPER Office Visit Department of Internal Medicine [place] [address] [place] [address] Debi Wilcox M.D. [address] [place] [phone] documented as of this encounter Procedures Procedure Name Priority Date/Time Associated Diagnosis Comments MR BREAST BILATERAL WITHOUT AND WITH IV CONTRAST RAD - Routine (most inpatients and all outpatients) 11/04/2023 3:24 PM CDT Pain Breast Mammographic Heterogeneous Density, Bilateral Breasts documented in this encounter Results * MR Breast Bilateral [...] screening mammogram. ASSESSMENT: BI-RADS: 1: Negative. us Caroline Hurley [facility] IMG MRI PROCEDURES Final Result documented in this encounter Visit Diagnoses Diagnosis Pain Breast Mammographic Heterogeneous Density, Bilateral Breasts documented in this encounter Administered Medications Inactive Administered Medications - up to 3 most recent administrations Medication Order MAR Action Action Date Dose Rate Site gadobutrol injection 15 mL (Gadavist) 15 mL, intravenous, Once in imaging, contrast, Starting on Sat11/04/23 at 1453, For 1 dose, Intrathecal doses greater than 0.25 mL not recommended. Given 11/04/2023 2:54 PM CDT 11 mL sodium chloride 0.9 % flush 1-250 mL 1-250 mL, intravenous, Once in imaging, line care, Starting on Sat11/04/23 at 1453, For 1 dose Given 11/04/2023 2:54 PM CDT 45 mL documented in this encounter Additional Health Concerns Assessment Noted Time PHQ-9 Depression Total Score: 4 11/13/19 19 7:39 AM CDT documented as of this encounter Care Teams Storehouse Clerk Relationship Specialty Start Date End Date Debi Wilcox M.D. [address] [place] [phone] PCP - General Internal Medicine 10/01/18 documented as of this encounter
--- OUTSIDE RECORDS SUMMARY | 2023-11-28 12:06 | XMS_ITS | Encounter Summary ---
Author Organization [facility] Address [address] [place] [address] Care Team Providers Care Material Cutter Name Role Phone Debi Wilcox M.D. Primary Care Provider [phone] [phone] Encounter Details Date Type Department Care Team (Latest Contact Info) Description 09/12/2023 11:38 AM CDT - 09/12/2023 11:59 PM CDT Hospital Encounter Department of Laboratory Medicine in [address] [phone] Debi Wilcox M.D. [address] [place] [phone] Edema Discharge Disposition: Home or Self Care Social History Tobacco Use Types Packs/Day Years Used Date Smoking Tobacco: Never Passive Smoke Exposure: Never Smokeless Tobacco: Never Alcohol Use Standard Drinks/Week Comments No 0 (1 standard drink = 0.6 oz pur e alcohol) [facility] Utilities Answer Date Recorded In the past 12 months has [employer], gas, oil, or water company threatened to [...] and Family Twice a week 11/06/2018 Attends Mormonism Services More than 4 times per year [...] Sex Assigned at Female 02/14/2018 7:06 AM DATA CODER OPERATOR Legal Sex Female 6:32 AM DATA CODER OPERATOR Gender Identity Female 02/14/2018 7:06 AM DATA CODER OPERATOR Sexual Orientation Straight 02/14/2018 7: 06 AM DATA CODER OPERATOR documented as of this encounter Medications at [...] CDT Appointment Department of Laboratory Medicine in [address] [phone] Debi Wilcox M.D. [address] [place] [phone] 03/09/2024 10:50 AM DATA CODER OPERATOR Appointment Department of Laboratory Medicine in [address] [phone] Debi Wilcox M.D. [address] [place] [phone] 03/09/2024 11:00 AM DATA CODER OPERATOR Appointment Department of Radiology in [address] [phone] Debi Wilcox M.D. [address] [place] [phone] 03/09/2024 1:00 PM DATA CODER OPERATOR Office Visit Department of Internal Medicine in [address] [phone] Debi Wilcox M.D. [address] [place] [phone] documented as of this encounter Procedures Procedure Name Priority Date/Time Associated Diagnosis Comments URINALYSIS WITH MICROSCOPIC Routine 09/12/2023 11:59 AM CDT Edema documented in this encounter Results * Urinalysis, with Microscopic: Urine, Midstream (09/12/2023 [...] 8.0 09/12/2023 12:03 PM CDT [facility] Specific [place] 1.024 1.001 - 1.035 09/12/2023 12:03 PM [...] M.D. LAB URINE ORDERABLES Shefali l Result [facility] [address] [place] [address], [facility] in [place] [address] [place] [phone] documented in this encounter Visit Diagnoses Diagnosis Edema documented in this encounter Additional Health Concerns Assessment Noted Time PHQ-9 Depression Total Score: 4 11/13/19 19 7:39 AM CDT documented as of this encounter Care Teams Material Cutter Relationship Specialty Start Date End Date Debi Wilcox M.D. [address] [place] [phone] PCP - General Internal Medicine 10/01/18 documented as of this encounter
--- OUTSIDE RECORDS SUMMARY | 2023-11-28 12:06 | XMS_ITS | Clinical Summary ---
Author Organization [employer] [facility] Address [place], [place] [address] Care Team Providers Care Technical Sales Representatives Name Role Phone Maryann Frost Primary Care Provider Unavail le Family History Medical History Relation Name Comments Cancer-breast No Family History Social History Tobacco Use Types Packs/Day Years Used Date Smoking Tobacco: Never Assessed Sex and Gender Information Value Date Recorded Sex Assigned at Not on file Gender Identity Not on file Sexual Orientation Not on file Obstetrics History Plan of Treatment Health Maintenance Due Date Last Done Comments Tdap 1967 Depression screening for age 12+ 1968 BMI (ht and wt on same day) for age 18+ 1974 Hepatitis C screening for ag e 18-79 1974 Tetanus booster 1976 Colonoscopy through age 75 2001 Lipids for age 45-75 2001 Zoster (shingles) series for age 50+ (1 of 2) 2006 Mammogram for age 45-75 06/05/2015 06/05/19 15, 05/28/2014, 08/03/2013, Additional history exists DEXA/DXA scan for age 65+ 2021 Pneumococcal series for age 65+ (1 of 1 - PCV) 2021 COVID-19 vaccine series (2023- season) 2023 Influenza for age 65+ 10/13/2023 Procedures Procedure Name Priority Date/Time Associated Diagnosis Comments XR FFDM MAMMO UNI ADDL VIEWS LEFT (IA) Routine 06/04/2014 1:52 PM CDT Abnormal mammogram from Last 3 Months or Most Recently Relevant to Health Maintenance Results * XR FFDM MAMMO UNI ADDL VIEWS LEFT (06/04/2014 1:52 PM CDT) Anatomical Region Laterality Modality BREASTS, Breast Left Left Mammography Impressions 06/05/2014 7:46 AM CDT ??BI-RADS Category 1: Negative RECOMMENDATION: ??Routine screening. ?? NOTE: ??Findings communicated to the patient. ?? Josiah Lemus D.O. Diagnostic Radiologist [email or web address] / Narrative 06/05/2014 7:46 AM CDT ADDITIONAL VIEWS LEFT BREAST, 06/04/2014 CLINICAL HISTORY: ??Recall for asymmetry in the posterolateral LEFT breast on CC view screening study 05/28/2014. ?? TECHNIQUE: ??Spot compression CC, standard CC and true lateral views were performed. ?? FINDINGS: ??The asymmetry dissipates with no underlying mass or architectural distortion. ?? Procedure Note Josiah Lemus DO - 06/05/2014 ADDITIONAL VIEWS LEFT BREAST, 06/04/2014 CLINICAL HISTORY: Recall for asymmetry in the posterolateral LEFT breaston CC view screening study 05/28/2014. TECHNIQUE: Spot compression CC, standard CC and true lateral views wereperformed. FINDINGS: The asymmetry dissipates with no underlying mass orarchitectural distortion. IMPRESSION: BI-RADS Category 1: Negative RECOMMENDATION: Routine screening. NOTE: Findings communicated to the patient. Josiah Lemus D.O. Diagnostic Radiologist [email or web address] / Maryann Frost MAMMO from Last 3 Months or Most Recently Relevant to Health Maintenance Care Teams Technical Sales Representatives Relationship Specialty Start Date End Date Maryann Frost PCP - General Obstetrics and Gynecology 05/17/14
--- OUTSIDE RECORDS SUMMARY | 2023-11-28 12:06 | XMS_ITS | Encounter Summary ---
Author Organization [facility] Address [address] [place] [address] Care Team Providers Care Assistant Women'S Basketball Coach Name Role Phone Debi Wilcox M.D. Primary Care Provider [phone] [phone] Encounter Details Date Type Department Care Team (Late st Contact Info) Description 05/01/2002 Historical Ophthalmology RST OPH Sushila Delgado O.D. Social History Tobacco Use Types Packs/Day Years Used Date Smoking Tobacco: Never Assessed Comments Unknown Sex and Gender Information Value Date Recorded Sex Assigned at Female 02/14/2018 7:06 AM PASS WORKER Legal Sex Female 6:32 AM PASS WORKER Gender Identity Female 02/14/2018 7:06 AM PASS WORKER Sexual Orientation Straight 02/14/2018 7: 06 AM PASS WORKER documented as of this encounter Progress Notes * Sushila Delgado O.D. - 05/01/2002 12:00 AM CST Eye General CHIEF COMPLAINT reading blur HISTORY OF PRESENT ILLNESS Last eye exam 8-00. In past 6 months has had sorness, pressure feeling OU. No itching, burning or tearing. Complains of vision blur with close up work and arms length range. Occasional floaters no flashes, denies diplopia. IMPRESSION / REPORT / PLAN #1 Refractive error (myopia, myopic astigmatism, presbyopia, anisometropia). Plan: spectacle prescription (Refraction 1) given. RTC 2 years or prn DIAGNOSIS #1 Refractive error (myopia, myopic astigmatism, presbyopia, anisometropia). CDM Reports - EYEGEN Id: [id number] Status: Fnl documented in this encounter Plan of Treatment Upcoming Encounters Date Type Department Care Team (Late st Contact Info) Description 12/13/2023 7:20 AM CDT Appointment Department of Laboratory Medicine in [address] [phone] Debi Wilcox M.D. [address] [place] [phone] 03/09/2024 10:50 AM PASS WORKER Appointment Department of Laboratory Medicine in [address] [phone] Debi Wilcox M.D. [address] [place] [phone] 03/09/2024 11:00 AM PASS WORKER Appointment Department of Radiology in [address] [phone] Debi Wilcox M.D. [address] [place] [phone] 03/09/2024 1:00 PM PASS WORKER Office Visit Department of Internal Medicine in [address] [phone] Debi Wilcox M.D. [address] [place] [phone] documented as of this encounter Visit Diagnoses Not on filedocumented in this encounter Additional Health Concerns Infection Onset Date Last Indicated Resolved Time COVID19 Pending 01/30/2021 01/30/2021 01/30/2021 3 :54 PM PASS WORKER COVID19 Pending 01/30/2021 01/30/2021 01/30/2021 4 :20 PM PASS WORKER COVID19 01/30/2021 01/30/2021 02/19/2021 4:45 AM PASS WORKER documented as of this encounter Care Teams Assistant Women'S Basketball Coach Relationship Specialty Start Date End Date Debi Wilcox M.D. [address] [place] [phone] PCP - General Internal Medicine 10/01/18 documented as of this encounter
--- OUTSIDE RECORDS SUMMARY | 2023-11-28 12:06 | XMS_ITS | Encounter Summary ---
Author Organization [facility] Address [address] [place] [address] Care Team Providers Care Film Examiner Name Role Phone Debi Wilcox M.D. Primary Care Provider +1 [phone] Reason for Referral * MRI/CAT/PET Scan (Routine) - Closed Specialty Diagnoses / Procedures Referred By Contac t Referred To Contact Radiology Diagnoses Nodule Pulmonary Solitary Procedures CT Chest without IV Contrast Debi Wilcox M.D. [address] [place] [phone] Phone: tel: fax: [facility] Referral ID Status Reason Start Date Expiration Date Visits Re quested Visits Authorized [id number] Closed 09/12/2023 09/11/2024 1 1 Reason for Visit * MRI/CAT/PET Scan (Routine) - Closed Specialty Diagnoses / Procedures Referred By Contac t Referred To Contact Radiology Diagnoses Nodule Pulmonary Solitary Procedures CT Chest without IV Contrast Debi Wilcox M.D. [address] [place] [address] Phone: tel: fax: [facility] Region Referral ID Status Reason Start Date Expiration Date Visits Re quested Visits Authorized [id number] Closed 09/12/2023 09/11/2024 1 1 Encounter Details Date Type Department Care Team (Latest Contact Info) Description 09/26/2023 1:48 PM CDT - 09/26/2023 11:59 PM CDT Hospital Encounter Department of Radiology in [place], [place] [address] [place] [phone] Debi Wilcox M.D. [address] [place] [phone] Nodule Pulmonary Solitary Discharge Disposition: Home or Self Care Social History Tobacco Use Types Packs/Day Years Used Date Smoking Tobacco: Never Passive Smoke Exposure: Never Smokeless Tobacco: Never Alcohol Use Standard Drinks/Week Comments No 0 (1 standard drink = 0.6 oz pur e alcohol) [facility] Utilities Answer Date Recorded In the past 12 months has [employer], gas, oil, or water company threatened [...] and Family Twice a week 11/06/2018 Attends Mandaeism Services More than 4 times per year [...] Answer Date Recorded PHQ-2 Score 0 03/29/2023 [facility] Occupat ional [facility] - Occupational Stress [...] your living situation today? I have a [facility] place to live 04/04/2023 Education Answer Date Recorded What is the highest level of school you have completed or the highest degree you have received? 12th grade 11/06/2018 Comments No Sex and Gender Information Value Date Recorded Sex Assigned at Female 02/14/2018 7:06 AM EYEGLASS FRAMES INSPECTOR Legal Sex Female 6:32 AM EYEGLASS FRAMES INSPECTOR Gender Identity Female 02/14/2018 7:06 AM EYEGLASS FRAMES INSPECTOR Sexual Orientation Straight 02/14/2018 7: 06 AM EYEGLASS FRAMES INSPECTOR documented as of this encounter Medications at [...] Appointment Department of Laboratory Medicine in [address] [phone] Debi Wilcox M.D. [address] [place] [phone] 03/09/2024 10:50 AM EYEGLASS FRAMES INSPECTOR Appointment Department of Laboratory Medicine in [address] [phone] Debi Wilcox M.D. [address] [place] [phone] 03/09/2024 11:00 AM EYEGLASS FRAMES INSPECTOR Appointment Department of Radiology in [address] [place] [phone] Debi Wilcox M.D. [address] [place] [phone] 03/09/2024 1:00 PM EYEGLASS FRAMES INSPECTOR Office Visit Department of Internal Medicine in [address] [phone] Debi Wilcox M.D. [address] [place] [phone] documented as of this encounter Procedures Procedure Name Priority Date/Time Associated Diagnosis Comments CT CHEST WITHOUT IV CONTRAST RAD - Routine (most inpatients and all outpatients) 09/26/2023 2:06 PM CDT Nodule Pulmonary Solitary documented in this encounter Results * CT Chest without IV Contrast (09/26/2023 [...] M.D. IMG CT PROCEDURES Final R esult documented in this encounter Visit Diagnoses Diagnosis Nodule Pulmonary Solitary documented in this encounter Additional Health Concerns Assessment Noted Time PHQ-9 Depression Total Score: 4 11/13/19 19 7:39 AM CDT documented as of this encounter Care Teams Film Examiner Relationship Specialty Start Date End Date Debi Wilcox M.D. [address] [place] [phone] PCP - General Internal Medicine 10/01/18 documented as of this encounter
[2023-11-28 14:55] LABS: Clue Cells No Clue Cells Seen (None Seen); Trichomonas No Trichomonas Seen (None Seen); Yeast No Yeast Seen (None Seen)
== END 2023-11-28 12:01 | disposition home or self-care (01) ==
PROVIDERS: PCP Nurse Practitioner Family; Visit Provider Nurse Practitioner Family
DX: N76.0 Acute vaginitis (principal); L29.2 Pruritus vulvae
CPT/HCPCS: 81001; 87210

== ENCOUNTER 2023-12-10 14:18 | Outpatient (CLI) | payer MEDICARE, OTHER, SELFPAY | END 2023-12-10 14:19 | disposition home or self-care (01) | PROVIDERS: PCP Nurse Practitioner Family; Visit Provider Nurse Practitioner Family | DX: J32.9 Chronic sinusitis, unspecified (principal); R81 Glycosuria; R25.2 Cramp and spasm | CPT/HCPCS: 80053; 83735 ==

== ENCOUNTER 2024-09-04 08:43 | Outpatient (CLI) | payer MEDICARE, OTHER, SELFPAY | END 2024-09-04 08:44 | disposition home or self-care (01) | PROVIDERS: PCP Nurse Practitioner Family; Visit Provider Nurse Practitioner Family | DX: R10.13 Epigastric pain (principal) | CPT/HCPCS: 80053; 82150; 83690; 85025 ==

== ENCOUNTER 2024-09-24 07:49 | Outpatient (CLI) | payer MEDICARE, OTHER, SELFPAY ==
--- NOTE | 2024-09-24 09:50 | P.ANES_ITS ---
Anesthesia Charges Start Date/Time Anesthesia Start Date: 09/24/24 Anesthesia Start Time: 09:33 Stop Date/Time Anesthesia Stop Date: 09/24/24 Anesthesia Stop Time: 09:50 Coding CPT Codes CPT Codes: ANES UPR GI NDSC PX NOS - 07056 ([id number]) P3 - PATIENT W/SEVERE SYS DISEASE, QK - DINING ROOM CASHIER 2-4 CNCRNT ANES PROC, QX - HAIR OR BEAUTY SALON MANAGER SVC W/ MD MED DIRECTION
--- NOTE | 2024-09-24 09:50 | W.ANESCHARGE ---
Anesthesia Charges Start Date/Time Anesthesia Start Date: 09/24/24 Anesthesia Start Time: 09:33 Stop Date/Time Anesthesia Stop Date: 09/24/24 Anesthesia Stop Time: 09:50 Coding CPT Codes CPT Codes: ANES UPR GI NDSC PX NOS - 32440 ([id number]) P3 - PATIENT W/SEVERE SYS DISEASE, QK - SOLAR SALES REPRESENTATIVE 2-4 CNCRNT ANES PROC, QX - FLAME HARDENING MACHINE OPERATOR SVC W/ MD MED DIRECTION
--- NOTE | 2024-09-24 11:16 | P.ANES_ITS ---
Anesthesia Charges Start Date/Time Anesthesia Start Date: 09/24/24 Anesthesia Start Time: 09:33 Stop Date/Time Anesthesia Stop Date: 09/24/24 Anesthesia Stop Time: 09:50 Coding CPT Codes CPT Codes: ANES UPR GI NDSC PX NOS - 54280 ([id number]) QK - PAI GOW MANAGER 2-4 CNCRNT ANES PROC, QX - FEDERAL MEDIATOR SVC W/ MD MED DIRECTION, P3 - PATIENT W/SEVERE SYS DISEASE
--- NOTE | 2024-09-24 11:16 | W.ANESCHARGE ---
Anesthesia Charges Start Date/Time Anesthesia Start Date: 09/24/24 Anesthesia Start Time: 09:33 Stop Date/Time Anesthesia Stop Date: 09/24/24 Anesthesia Stop Time: 09:50 Coding CPT Codes CPT Codes: ANES UPR GI NDSC PX NOS - 38703 ([id number]) QK - MENTALLY IMPAIRED TEACHER 2-4 CNCRNT ANES PROC, QX - LINEWORKER SVC W/ MD MED DIRECTION, P3 - PATIENT W/SEVERE SYS DISEASE
== END 2024-09-24 07:50 | disposition home or self-care (01) ==
LOC: OP CLINIC 07:50
PROVIDERS: PCP Nurse Practitioner Family; Visit Provider Surgery
DX: R10.13 Epigastric pain (principal); K31.7 Polyp of stomach and duodenum; K31.89 Other diseases of stomach and duodenum
CPT/HCPCS: 00731; 43239; 88305; J2704; J3490